=== PATIENT | female | born 1950 | race Hispanic/Latino ===

== ENCOUNTER 2017-05-02 09:00 | Emergency (ER) | payer MEDICARE, OTHER ==
[2017-05-02 09:10] VITALS: BMI 22.6
--- NOTE | 2017-05-02 09:15 | ED PDOC ---
Arrival/HPI - General Historian: Patient <Mya Adkins A - Last Filed: 05/02/17 19:43> <Cruzito Sinha P - Last Filed: 05/03/17 00:39> <Norah Cesar - Last Filed: 05/03/17 12:20> - General Time Seen by Provider: 05/02/17 09:09 - History of Present Illness Narrative History of Present Illness (Text): 05/02/17 09:12 Patient is a 66yo female with no PMHx who was biba for right hip pain s/p trauma this morning. Patient notes that she tripped over a wrise at 0630am and landed on her right hip. Notes that she couldn't move secondary to the pain, until her neighbor came to help her. Notes that pain is only on palpation of the hip. She denies hitting her head on the floor. she is not on any anticoagulant. denies focal weakness, dizziness, nausea, vomiting, headache, any other complaint. (Mya Adkins A) Past Medical History - Provider Review Nursing Documentation Reviewed: Yes <JedMya A - Last Filed: 05/02/17 19:43> Family/Social History - Physician Review Nursing Documentation Reviewed: Yes Family/Social History: Unknown Family HX <JedMya A - Last Filed: 05/02/17 19:43> Allergies/Home Meds <JedMya A - Last Filed: 05/02/17 19:43> <Cruzito Sinha P - Last Filed: 05/03/17 00:39> <Norah Cesar - Last Filed: 05/03/17 12:20> Allergies/Adverse Reactions: Allergies No Known Allergies Allergy (Verified 05/02/17 09:10) Home Medications: Home Meds Medication Instructions Recorded Confirmed No Known Home Med 05/02/17 05/02/17 Review of Systems - Physician Review All systems were reviewed & negative as marked: Yes - Review of Systems Constitutional: Normal Eyes: Normal ENT: Normal Respiratory: Normal Cardiovascular: Normal Gastrointestinal: Normal Genitourinary Female: Normal Musculoskeletal: Arthralgias (right hip pain) Skin: Normal Neurological: Normal Endocrine: Normal Hemo/Lymphatic: Normal Psychiatric: Normal <Mya Adkins A - Last Filed: 05/02/17 19:43> Physical Exam Vital Signs Reviewed: Yes Temperature: Afebrile Blood Pressure: Normal Pulse: Regular Respiratory Rate: Normal Appearance: Positive for: Well-Appearing, Non-Toxic, Comfortable Pain Distress: None Mental Status: Positive for: Alert and Oriented X 3 - Systems Exam Head: Present: Atraumatic, Normocephalic Pupils: Present: PERRL Extroacular Muscles: Present: EOMI Conjunctiva: Present: Normal Mouth: Present: Moist Mucous Membranes Neck: Present: Normal Range of Motion Respiratory/Chest: Present: Clear to Auscultation, Good Air Exchange. No: Respiratory Distress, Accessory Muscle Use Cardiovascular: Present: Regular Rate and Rhythm, Normal S1, S2. No: Murmurs Abdomen: Present: Normal Bowel Sounds. No: Tenderness, Distention, Peritoneal Signs Back: Present: Normal Inspection Upper Extremity: Present: Normal Inspection. No: Cyanosis, Edema Lower Extremity: Present: NORMAL PULSES, Tenderness (Right hip), Neurovascularly Intact, Other (Feet externally rotated). No: Edema, Normal ROM (Unable to ascess secondary to pain), Swelling Neurological: Present: GCS=15, CN II-XII Intact, Speech Normal Skin: Present: Warm, Dry, Normal Color. No: Rashes Psychiatric: Present: Alert, Oriented x 3, Normal Insight, Normal Concentration <Mya Adkins A - Last Filed: 05/02/17 19:43> Vital Signs Temp Pulse Resp BP Pulse Ox 05/02/17 23:36 97.6 F 82 16 122/76 97 05/02/17 18:00 70 16 125/67 96 05/02/17 14:50 77 16 122/77 99 05/02/17 12:50 18 149/76 99 05/02/17 09:24 98.2 F 72 18 146/77 99 Medical Decision Making <JedHappiness A - Last Filed: 05/02/17 19:43> <Cruzito Sinha - Last Filed: 05/03/17 00:39> <Norah Cesar - Last Filed: 05/03/17 12:20> ED Course and Treatment: 05/02/17 12:39 PT in ED for stated history. She declined Percocet and asked for Tylenol. However she later requested for a stronger analgesic and Morphine was ordered. Hip Xra - Left displaced subcapital fracture Case was DW Dr. Ivey and he requested that pt be admitted to the hospitalist and he will take pt to the OR tomorrow. 05/02/17 16:57 PT was seen in ED by Dr. Ivey and he request that patient be transferred to [facility]. States patient require total hip replacement and don't have the instrument in the OR here. Dr. Ivey states he DC with [facility] and pt will be transferred and admitted to his service. Dr. Coleman called from [facility] and states he will back, once patient have a bed and then she can be transferred. (Mya Adkins) 05/03/17 00:39: I was informed by the RN that the patient was refusing to be moved onto the transport stretcher due to pain in the patient's right hip. 2mg of Morphine were ordered which did not help, then 1mg of Dilaudid was ordered and a femoral nerve block was performed. PROCEDURE: DIGITAL BLOCK Performed by the emergency provider Indication : Pain control Location: Right Hip Preparation: The area was prepped and cleansed with ChloraPrep. Procedure: The appropriate site for a femoral nerve block was identified. Nerve block was obtained with local infiltration of 8 mL of Marcaine. Used Ultrasound for guidance. Post-Procedure: The patient tolerated the procedure well, and there were no complications. (Cruzito Sinha) - Lab Interpretations Lab Results: 05/02/17 12:00 05/02/17 12:00 Lab Results 05/02/17 12:30: Blood Type Confirm A POSITIVE 05/02/17 12:00: Blood Type A POSITIVE, Antibody Screen Negative, BBK History Checked No verified bt 05/02/17 12:00: Sodium 140, Potassium 3.8, Chloride 106, Carbon Dioxide 25, Anion Gap 13, BUN 22 H, Creatinine 0.7, Est GFR ( Amer) > 60, Est GFR ( Non-Af Amer) > 60, Random Glucose 123 H, Calcium 9.4, Total Bilirubin 0.5, AST 34, ALT 38, Alkaline Phosphatase 61, Total Protein 7.1, Albumin 4.1, Globulin 3.1, Albumin/Globulin Ratio 1.3 05/02/17 12:00: PT 11.8, INR 1.07, APTT 28.1 05/02/17 12:00: WBC 11.0, RBC 3.77, Hgb 11.4 L, Hct 34.8 L, MCV 92.3, MCH 30.2, MCHC 32.8, RDW 13.1, Plt Count 245, MPV 9.4, Gran % 89.8 H, Lymph % (Auto) 5.5 L , Walker % (Auto) 4.5, Eos % (Auto) 0.1 L, Baso % (Auto) 0.1, Gran # 9.88 H, Lymph # 0.6 L, Walker # 0.5, Eos # 0.0, Baso # 0.01 - RAD Interpretation Radiology Orders: 05/02/17 09:10 Hip Bilateral [HIP MIN 3V W/ PELVIS JOSE CARLOS] [RAD] Stat 05/02/17 11:48 CHEST PORTABLE [RAD] Stat - Medication Orders Current Medication Orders: Discontinued Medications Acetaminophen (Tylenol 325mg Tab) 650 mg PO STAT STA Stop: 05/02/17 09:11 Last Admin: 05/02/17 09:31 Dose: 650 mg [facility] Pain/Vitals Document 05/02/17 09:31 LISET (Rec: 05/02/17 09:32 LISET [id number]) Pain Reassessment Is This A Pain ReAssessment? No Sleep Is patient sleeping during reassessment? No Presence of Pain Presence of Pain Yes Re-Assess: [facility] Pain/Vitals Document 05/02/17 10:31 LISET (Rec: 05/02/17 13:46 LISET [id number]) Pain Reassessment Is This A Pain ReAssessment? No Sleep Is patient sleeping during reassessment? No Presence of Pain Presence of Pain Yes Pain Scale Used Pain Scale Used Numeric Location Intensity 4 Scale Used Numeric Hydromorphone HCl (Dilaudid) 1 mg IVP STAT STA Stop: 05/03/17 00:44 Last Admin: 05/03/17 00:54 Dose: Morphine Sulfate (Morphine) 2 mg IM STAT STA Stop: 05/02/17 10:47 Last Admin: 05/02/17 10:58 Dose: 2 mg MAR Pain Assessment Document 05/02/17 10:58 LISET (Rec: 05/02/17 10:59 LISET [id number]) Pain Reassessment Is this a pain reassessment? No Sleep Is patient sleeping during reassessment? No Presence of Pain Presence of Pain Yes IM Administration Charges Document 05/02/17 10:58 SZA (Rec: 05/02/17 10:59 SZA [id number]) Charges for Administration # of IM Administrations 1 Re-Assess: MAR Pain Assessment Document 05/02/17 11:58 SZA (Rec: 05/02/17 13:45 SZA [id number]) Pain Reassessment Is this a pain reassessment? No Sleep Is patient sleeping during reassessment? No Presence of Pain Presence of Pain Yes Pain Scale Used Pain Scale Used Numeric Description Description Intermittent Intensity of Pain at present 3 Morphine Sulfate (Morphine) 2 mg IVP STAT STA Stop: 05/02/17 14:38 Last Admin: 05/02/17 14:47 Dose: 2 mg MAR Pain Assessment Document 05/02/17 14:47 SZA (Rec: 05/02/17 14:48 SZA [id number]) Pain Reassessment Is this a pain reassessment? No Sleep Is patient sleeping during reassessment? No Presence of Pain Presence of Pain Yes Pain Scale Used Pain Scale Used Numeric Description Description Intermittent Intensity of Pain at present 5 IVP Administration Document 05/02/17 14:47 SZA (Rec: 05/02/17 14:48 SZA [id number]) Charges for Administration # of IVP Administrations 1 Morphine Sulfate (Morphine) 2 mg IVP STAT STA Stop: 05/02/17 16:44 Last Admin: 05/02/17 16:56 Dose: 2 mg MAR Pain Assessment Document 05/02/17 16:56 SC (Rec: 05/02/17 16:56 SC [id number]) Pain Reassessment Is this a pain reassessment? Yes Sleep Is patient sleeping during reassessment? No Presence of Pain Presence of Pain Yes Pain Scale Used Pain Scale Used Numeric Description Intensity of Pain at present 10 IVP Administration Document 05/02/17 16:56 SC (Rec: 05/02/17 16:56 SC [id number]) Charges for Administration # of IVP Administrations 2 Morphine Sulfate (Morphine) 4 mg IVP STAT STA Stop: 05/03/17 00:02 Last Admin: 05/03/17 00:30 Dose: Morphine Sulfate (Morphine) 2 mg IVP STAT STA Stop: 05/03/17 00:44 Last Admin: 05/03/17 00:53 Dose: - PA / CREATIVE RECRUITER / Resident Statement MD/DO has reviewed & agrees with the documentation as recorded. <Norah Cesar - Last Filed: 05/03/17 12:20> Disposition/Present on Arrival - Present on Arrival Any Indicators Present on Arrival: No History of DVT/PE: No History of Uncontrolled Diabetes: No Urinary Catheter: No History of Decub. Ulcer: No History Surgical Site Infection Following: None - Disposition Have Diagnosis and Disposition been Completed?: Yes Disposition Time: 12:40 <Mya Adkins - Last Filed: 05/02/17 19:43> <Cruzito Sinha - Last Filed: 05/03/17 00:39> - Present on Arrival Any Indicators Present on Arrival: No History of DVT/PE: No History of Uncontrolled Diabetes: No Urinary Catheter: No History of Decub. Ulcer: No History Surgical Site Infection Following: None - Disposition Have Diagnosis and Disposition been Completed?: Yes Disposition Time: 19:45 Patient Plan: Transfer To ([facility] [place]) <Norah Cesar - Last Filed: 05/03/17 12:20> - Disposition Diagnosis: Hip fracture Disposition: Transfer [facility] Condition: STABLE Forms: Need Fixed (Albanian)
[2017-05-02] MEDS ORDERED: Morphine 2 mg/ml ISec IM STA (10:46)
[2017-05-02 12:19] LABS: BASO # 0.01 K/mm3 (0.0-2.0); BASO % 0.1 % (0.0-3.0); EOS % 0.1 % (1.5-5.0); GRAN # 9.88 (1.4-6.5); GRAN % 89.8 % (50.0-68.0); HEMATOCRIT 34.8 % (36.0-48.0); LYMPH # 0.6 (1.2-3.4); LYMPH % 5.5 % (22.0-35.0); MEAN CELL VOLUME 92.3 fl (80.0-105.0); MEAN CORPUSCULAR HEMOGLOBIN 30.2 pg (25.0-35.0); MEAN CORPUSCULAR HGB CONC 32.8 g/dl (31.0-37.0); MEAN PLATELET VOLUME 9.4 fl (7.0-11.0); MONO # 0.5 (0.1-0.6); MONO % 4.5 % (1.0-6.0); RED CELL DISTRIBUTION WIDTH 13.1 % (11.5-14.5)
--- NOTE | 2017-05-02 12:22 | RAD ---
PROCEDURE: Bilateral hips HISTORY: right hip pain s/p trauma COMPARISON: TECHNIQUE: Two views of the left hip and a single view of the right hip were obtained. The pelvis to was not completely image FINDINGS: There is a displaced subcapital hip fracture on the right. The left hip is unremarkable IMPRESSION: Displaced subcapital hip fracture on the right
--- NOTE | 2017-05-02 12:24 | RAD ---
HISTORY: admission COMPARISON: No prior. FINDINGS: LUNGS: There is mild peribronchial thickening. No focal consolidation PLEURA: No significant pleural effusion identified, no pneumothorax apparent. CARDIOVASCULAR: Normal. OSSEOUS STRUCTURES: No significant abnormalities. VISUALIZED UPPER ABDOMEN: Normal. OTHER FINDINGS: None. IMPRESSION: Mild peribronchial thickening
[2017-05-02 12:29] LABS: ALB/GLOB RATIO 1.3 (1.1-1.8); ALKALINE PHOSPHATASE 61 U/L (38-126); ALT/SGPT 38 U/L (7-56); AST/SGOT 34 U/L (14-36); BILIRUBIN,TOTAL 0.5 mg/dL (0.2-1.3); BLOOD UREA NITROGEN 22 mg/dL (7-21); CALCIUM 9.4 mg/dL (8.4-10.5); CARBON DIOXIDE 25 mmol/L (21-33); CHLORIDE 106 mmol/L (98-107); GFR AFRICAN-AMERICAN > 60; GLUCOSE,RANDOM 123 mg/dL (70-110); POTASSIUM 3.8 mmol/L (3.6-5.0); SODIUM 140 mmol/L (132-148); TOTAL PROTEIN 7.1 g/dL (5.8-8.3)
[2017-05-02 12:35] LABS: INR 1.07 (0.93-1.08)
[2017-05-02 12:36] LABS: PARTIAL THROMBOPLASTIN TIME 28.1 Seconds (25.1-36.5)
[2017-05-02] MEDS ORDERED: Morphine 2 mg/ml ISec IVP STA ×2 (14:37→16:43)
[2017-05-02 14:55] VITALS: RESP 16
--- NOTE | 2017-05-02 18:26 | CARD ---
APPROVED REPORT EKG Measurement Heart [id number] <Conclusion> Normal sinus rhythm Possible Left atrial enlargement Low voltage QRS Borderline ECG
[2017-05-02 23:36] VITALS: BP 122/76; PULSE 82; TEMP 97.6; O2SAT 97
[2017-05-02] MEDS ORDERED: Morphine 2 mg/ml ISec ONE (23:39)
[2017-05-03] MEDS ORDERED: Morphine 4 mg/ml ISec IVP STA ×2 (00:01→00:43)
[2017-05-03] MEDS ORDERED: Bupivacaine 0.5% Inj(30mL) ONE (00:22)
[2017-05-03] MEDS ORDERED: HYDROmorphone 1 mg/ml ISec ONE (00:23)
[2017-05-03] MEDS ORDERED: HYDROmorphone 1 mg/ml ISec IVP STA (00:43)
== END 2017-05-03 00:54 | disposition short-term general hospital (02) ==
LOC: ED 09:00 → ERH 12:56 → UNDOADMIN 12:56 → ERH 13:19 → ED 05-03 00:54
DX: S72.011A Unspecified intracapsular fracture of right femur, initial encounter for closed fracture (principal); W01.0XXA Fall on same level from slipping, tripping and stumbling without subsequent striking against object, initial encounter; Y92.89 Other specified places as the place of occurrence of the external cause
CPT/HCPCS: 71010; 73522; 80053; 85025; 85610; 85730; 86850; 86900; 93005; 96372; 96374; 96376; 99284; J1170; J2270

== ENCOUNTER 2018-06-05 16:37 | Emergency (ER) | payer MEDICARE ==
[2018-06-05 16:49] VITALS: BMI 20.9
[2018-06-05 16:57] VITALS: TEMP 98
[2018-06-05] MEDS ORDERED: Iohexol 350 MG/100 ML VIAL ONE (17:19)
[2018-06-05 17:42] LABS: BASO # 0.02 K/mm3 (0.0-2.0); BASO % 0.7 % (0.0-3.0); EOS # 0.1 (0.0-0.7); EOS % 2.5 % (1.5-5.0); GRAN # 1.42 (1.4-6.5); HEMOGLOBIN 12.3 g/dL (12.0-16.0); LYMPH # 0.9 (1.2-3.4); LYMPH % 29.9 % (22.0-35.0); MEAN CELL VOLUME 91.6 fl (80.0-105.0); MEAN CORPUSCULAR HEMOGLOBIN 29.5 pg (25.0-35.0); MEAN CORPUSCULAR HGB CONC 32.2 g/dl (31.0-37.0); MEAN PLATELET VOLUME 9.4 fl (7.0-11.0); MONO # 0.5 (0.1-0.6); MONO % 16.9 % (1.0-6.0); RBC 4.17 10^6/uL (3.5-6.1); WHITE BLOOD COUNT 2.8 10^3/uL (4.5-11.0)
--- NOTE | 2018-06-05 17:45 | ED PDOC ---
Arrival/HPI - General Chief Complaint: Weakness/Neurological Deficit Time Seen by Provider: 06/05/18 16:52 Historian: Patient - History of Present Illness Narrative History of Present Illness (Text): 06/05/18 17:47 67 yo F c/o difficulty speaking, states that when she talks she gets tired of speaking, explaining that she can not talk for a long time. Sympotms have been occuring x 1.5 months. She has seen her pmd regarding her symptoms and referred her to ENT. She saw Dr. Laguerre, ENT, who did a scope and was told everything was normal. Admits to feeling fatigue at times. Admits that she was a former smoker. Denies any fever, URI, headache, sore throat, dyspnea, dysphagia, neck pain. PMD Perveen Past Medical History - Infectious Disease Hx of Infectious Diseases: None - Cardiac Hx Cardiac Disorders: No - Pulmonary Hx Respiratory Disorders: No - Neurological Hx Neurological Disorder: No - HEENT Hx HEENT Disorder: No - Renal Hx Renal Disorder: No - Endocrine/Metabolic Hx Endocrine Disorders: No - Hematological/Oncological Hx Blood Disorders: No - Integumentary Hx Dermatological Disorder: No - Musculoskeletal/Rheumatological Hx Musculoskeletal Disorders: No - Gastrointestinal Hx Gastrointestinal Disorders: No - Genitourinary/Gynecological Hx Genitourinary Disorders: No - Psychiatric Hx Psychophysiologic Disorder: No Hx Substance Use: No - Surgical History Other/Comment: R hip surgery. R elbow surgery. R shoulder surgery - Anesthesia Hx Anesthesia: No Family/Social History Family/Social History: No Known Family HX Smoking Status: Unknown If Ever Smoked Hx Alcohol Use: No Hx Substance Use: No Allergies/Home Meds Allergies/Adverse Reactions: Allergies No Known Allergies Allergy (Verified 06/05/18 16:57) Home Medications: Home Meds Medication Instructions Recorded Confirmed No Known Home Med 05/02/17 06/05/18 Review of Systems - Review of Systems Constitutional: absent: Fatigue, Fevers ENT: Voice Changes, Other (+difficulty speaking). absent: Rhinorrhea, Sinus Congestion Respiratory: absent: SOB, Cough Cardiovascular: absent: Chest Pain, Palpitations Gastrointestinal: absent: Abdominal Pain, Nausea, Vomiting Skin: absent: Pruritis Neurological: absent: Headache, Dizziness Physical Exam Vital Signs Temp Pulse Resp BP Pulse Ox 06/05/18 16:54 98.0 F 93 H 18 162/91 H 100 Temperature: Afebrile Blood Pressure: Hypertensive Pulse: Regular Respiratory Rate: Normal Appearance: Positive for: Well-Appearing, Non-Toxic, Comfortable Pain Distress: None Mental Status: Positive for: Alert and Oriented X 3 - Systems Exam Head: Present: Atraumatic, Normocephalic Pupils: Present: PERRL Extroacular Muscles: Present: EOMI Conjunctiva: Present: Normal Mouth: Present: Moist Mucous Membranes Pharnyx: Present: Normal. No: ERYTHEMA, EXUDATE Neck: Present: Normal Range of Motion, Trachea Midline. No: Lymphadenopathy Respiratory/Chest: Present: Clear to Auscultation, Good Air Exchange. No: Respiratory Distress, Accessory Muscle Use Cardiovascular: Present: Regular Rate and Rhythm, Normal S1, S2. No: Murmurs Abdomen: No: Tenderness, Distention, Peritoneal Signs Back: Present: Normal Inspection Upper Extremity: Present: Normal Inspection. No: Cyanosis, Edema Lower Extremity: Present: Normal Inspection. No: Edema Neurological: Present: GCS=15, CN II-XII Intact, Speech Normal (patient speaking in full sentences without any difficulty), Motor Func Grossly Intact, Normal Sensory Function, Gait Normal Skin: Present: Warm, Dry, Normal Color. No: Rashes Psychiatric: Present: Alert, Oriented x 3, Normal Insight, Normal Concentration Medical Decision Making ED Course and Treatment: 06/05/18 17:52 Plan : - Labs - CT neck w/ IV contrast 06/05/18 19:26 Labs reviewed : wbc 2. CT neck w/ IV contrast : IMPRESSION: 1. No pertinent laryngeal findings including the vocal cords bilaterally. No definite neck mass in the bilateral pulmonary apices reflect biapical fibrosis without gross mass particularly at the right apex. No findings at the regions of the bilateral recurrent laryngeal nerves. Consider possible head CT if brain infarction is clinically suspected given history of dysarthria. 2. Irregular appearing esophagus incidentally noted suspicious for esophagitis or possible neoplasm. Follow-up GI consultation advised. 3. Likely chronic sinusitis left maxillary sinus which is completely opacified. Results d/w the patient. Advised to follow up CT results with her pmd and with GI referral provided without fail. Return to the emergency room at any time for any new or worsening symptoms. Patient states she fully agrees with and understands discharge instructions. States that she agrees with the plan and disposition. Verbalized and repeated discharge instructions and plan. I have given the patient opportunity to ask any additional questions. - RAD Interpretation Radiology Orders: 06/05/18 17:01 NECK SOFT TISSUE W/CONTRAST [CT] Stat - PA / INORGANIC CHEMISTRY PROFESSOR / Resident Statement /DO has reviewed & agrees with the documentation as recorded. Disposition/Present on Arrival - Present on Arrival Any Indicators Present on Arrival: No History of DVT/PE: No History of Uncontrolled Diabetes: No Urinary Catheter: No History of Decub. Ulcer: No History Surgical Site Infection Following: None - Disposition Have Diagnosis and Disposition been Completed?: Yes Diagnosis: Difficulty speaking Disposition: HOME/ ROUTINE Disposition Time: 19:15 Patient Plan: Discharge Patient Problems: Current Active Problems Problem Status Onset Difficulty speaking Acute Condition: STABLE Additional Instructions: Thank you for letting us take care of you today. You were treated for difficulty speaking. The emergency medical care you received today was directed at your acute symptoms. Return to the Emergency Department if your symptoms worsen, do not improve, or if you have any other problems. Please contact your doctor in 2 days for re-evaluation and follow up / or call one of the physicians/clinics you have been referred to that are listed on the Patient Visit Information form that is included in your discharge packet. Bring any paperwork you were given at discharge with you along with any medications you are taking to your follow up visit. Our treatment cannot replace ongoing medical care by a primary care provider (PCP) outside of the emergency department. Thank you for allowing the [facility] team to be part of your care today. Follow up CT results with your pmd and with GI referral without fail. CT neck w/ IV contrast : 1. No pertinent laryngeal findings including the vocal cords bilaterally. No definite neck mass in the bilateral pulmonary apices reflect biapical fibrosis without gross mass particularly at the right apex. No findings at the regions of the bilateral recurrent laryngeal nerves. Consider possible head CT if brain infarction is clinically suspected given history of dysarthria. 2. Irregular appearing esophagus incidentally noted suspicious for esophagitis or possible neoplasm. Follow-up GI consultation advised. 3. Likely chronic sinusitis left maxillary sinus which is completely opacified. Referrals: Todd Gates MD [Primary Care Provider] - Follow up with primary Patrick Brown MD [Staff Provider] - Follow up with primary Forms: [employer] (Serbian)
[2018-06-05 17:53] LABS: ALB/GLOB RATIO 1.3 (1.1-1.8); ALT/SGPT 27 U/L (7-56); AST/SGOT 36 U/L (14-36); BLOOD UREA NITROGEN 20 mg/dL (7-21); CALCIUM 9.2 mg/dL (8.4-10.5); GFR NON-AFRICAN AMERICAN > 60
--- NOTE | 2018-06-05 19:01 | CT ---
Date of service: 06/05/2018 PROCEDURE: CT NECK WITH CONTRAST HISTORY: difficulty speaking, h/o smoking COMPARISON: None available. TECHNIQUE: CT of the neck with intravenous contrast. Coronal and sagittal reformats generated. Intravenous contrast dose: Omnipaque 350, 100 cc. Radiation dose: Total exam DLP = 374.64 mGy-cm. This CT exam was performed using one or more of the following dose reduction techniques: Automated exposure control, adjustment of the mA and/or kV according to patient size, and/or use of iterative reconstruction technique. FINDINGS: Incidental views through the visualized inferior intracranial contents and orbits is unremarkable. There is complete sinus opacification of the left maxillary sinus reflecting chronic sinusitis given mucoperiosteal thickening. Underlying acute component not excluded. Dental hardware obscures oral cavity evaluation. No discrete mass is seen in the pharynx, larynx or parapharyngeal soft tissues. Oral cavity appears unremarkable there is no suspicious lymphadenopathy in the supra or infrahyoid neck. Visualized trachea is widely patent. Vocal cords are unremarkable and symmetric appearing. The thoracic inlet appears unremarkable. Note, however, the esophagus appears irregularly thickened suspicious for potential esophagitis or even neoplasm. GI consultation recommended. Biapical pulmonary fibrosis identified without definitive mass apparent at this time. No suspicious lytic or blastic bony changes. Straightened cervical curvature with multilevel spondylosis and degenerative disease seen worst at C4-5 where there is essentially no residual intervertebral disc space remaining. OTHER FINDINGS: None. IMPRESSION: 1. No pertinent laryngeal findings including the vocal cords bilaterally. No definite neck mass in the bilateral pulmonary apices reflect biapical fibrosis without gross mass particularly at the right apex. No findings at the regions of the bilateral recurrent laryngeal nerves. Consider possible head CT if brain infarction is clinically suspected given history of dysarthria. 2. Irregular appearing esophagus incidentally noted suspicious for esophagitis or possible neoplasm. Follow-up GI consultation advised. 3. Likely chronic sinusitis left maxillary sinus which is completely opacified.
[2018-06-05 20:03] VITALS: BP 154/88; PULSE 68; RESP 20; O2SAT 99
== END 2018-06-05 20:03 | disposition home or self-care (01) ==
LOC: ED 16:37
DX: R47.9 Unspecified speech disturbances (principal)
CPT/HCPCS: 70491; 80053; 85025; 99285; Q9967

== ENCOUNTER 2018-07-15 08:18 | Emergency (ER) | payer MEDICARE ==
[2018-07-15 08:28] VITALS: BMI 20.8
[2018-07-15 08:39] VITALS: RESP 16; O2SAT 100
--- NOTE | 2018-07-15 09:02 | ED PDOC ---
Arrival/HPI - General Chief Complaint: Weakness/Neurological Deficit Time Seen by Provider: 07/15/18 08:29 Historian: Patient - History of Present Illness Narrative History of Present Illness (Text): 07/15/18 08:29 67 year old F with hx of esophageal ulcer and hernia presents to the Emergency department with generalized weakness, vocal weakness since over one month. Patient notes weakness and trouble balancing when ambulating. Patient informs slurring words since symptom onset. Patient informs of visiting ENT who confirmed no polyps or throat problems. Patient states she came to [facility] and saw Dr. Laguerre for endoscopy. Patient states endoscopy found esophageal hernia and ulcer. Patient states she is concerned about possible stroke. Patient denies any changes in symptoms since onset. Patient denies fevers, chills, headache, chest pain, dyspnea on exertion, cough, abdominal pain, nausea, vomiting, diarrhea, back pain, neck pain, or any other complaint. Time/Duration: > month Symptom Onset: Gradual Symptom Course: Unchanged Activities at Onset: Light Context: Home Past Medical History - Provider Review Nursing Documentation Reviewed: Yes - Infectious Disease Hx of Infectious Diseases: None - Cardiac Hx Cardiac Disorders: No - Pulmonary Hx Respiratory Disorders: No - Neurological Hx Neurological Disorder: No - HEENT Hx HEENT Disorder: No - Renal Hx Renal Disorder: No - Endocrine/Metabolic Hx Endocrine Disorders: No - Hematological/Oncological Hx Blood Disorders: No - Integumentary Hx Dermatological Disorder: No - Musculoskeletal/Rheumatological Hx Musculoskeletal Disorders: Yes Hx Falls: Yes - Gastrointestinal Hx Gastrointestinal Disorders: Yes - Genitourinary/Gynecological Hx Genitourinary Disorders: No - Psychiatric Hx Psychophysiologic Disorder: No Hx Substance Use: No - Surgical History Other/Comment: R hip surgery. R elbow surgery. R shoulder surgery - Anesthesia Hx Anesthesia: No Family/Social History - Physician Review Nursing Documentation Reviewed: Yes Family/Social History: No Known Family HX Smoking Status: Unknown If Ever Smoked Hx Alcohol Use: No Hx Substance Use: No Allergies/Home Meds Allergies/Adverse Reactions: Allergies No Known Allergies Allergy (Verified 06/05/18 16:57) Home Medications: Home Meds Medication Instructions Recorded Confirmed No Known Home Med 05/02/17 06/05/18 Review of Systems - Review of Systems Constitutional: absent: Fevers, Night Sweats ENT: Voice Changes Respiratory: SOB. absent: Cough Cardiovascular: absent: Chest Pain, DEL CID Gastrointestinal: absent: Abdominal Pain, Diarrhea, Nausea, Vomiting Musculoskeletal: absent: Back Pain, Neck Pain Neurological: Dizziness, Other (generalized weakness). absent: Headache Physical Exam - Physical Exam Narrative Physical Exam (Text): 07/15/18 08:29 Gen: VS reviewed, alert, well developed, well nourished, nontoxic, mild distress. ENT: normal pharynx. Eye: Mild edema under eyelids bilaterally, EOMI, PERRL. Neck: no JVD, supple, no adenopathy. CV: regular rate, regular rhythm, no rubs, no murmur, no gallops, S1, S2, pulses equal and strong. Pulm: no distress, clear to auscultation, no wheeze, no rhonchi, breath sounds equal, no rales. Abd: soft, nontender, no guarding, no rebound, no rigidity, normal bowel sounds. Ext: no edema. Skin: good color, no rash, no cyanosis. Psych: responds appropriately to questions, normal affect. Neuro: oriented x 3, CN2-12 intact grossly, motor intact, sensation intact. Vital Signs Reviewed: Yes Vital Signs Temp Pulse Resp BP Pulse Ox 07/15/18 08:33 97.3 F L 75 16 131/76 100 Temperature: Afebrile Blood Pressure: Normal Pulse: Regular Respiratory Rate: Normal Appearance: Positive for: Well-Appearing, Non-Toxic, Comfortable Pain Distress: None Mental Status: Positive for: Alert and Oriented X 3 Medical Decision Making ED Course and Treatment: 07/15/18 10:47 patient was seen for chronic fatigue without any focal subjective finding. physical exam unremarkable and workup unremarkable. there was no headache, c hest pain, dyspnea, abdominal pain, dysuria. Ct of the head was performed as the patient reports that her speech appears slowed or slurred. all her symptoms are chronic in nature and can be further worked up on a outpatient basis. patient discharged in stable condition to follow up with pcp. - RAD Interpretation Narrative RAD Interpretations (Text): 07/15/18 09:50 CT head w/o contrast shows: IMPRESSION: No acute intracranial finding Forging Press Operator: Radiologist - EKG Interpretation EKG Interpretation (Text): 07/15/18 09:52 0903: nsr at 70 bpm, nml qrs, nml axis, no acute sttw abn Interpreted by ED Physician: Yes - Scribe Statement The provider has reviewed the documentation as recorded by the Scribe Sadiq Woods All medical record entries made by the Scribe were at my direction and personally dictated by me. I have reviewed the chart and agree that the record accurately reflects my personal performance of the history, physical exam, medical decision making, and the department course for this patient. I have also personally directed, reviewed, and agree with the discharge instructions and disposition. Disposition/Present on Arrival - Present on Arrival Any Indicators Present on Arrival: No History of DVT/PE: No History of Uncontrolled Diabetes: No Urinary Catheter: No History of Decub. Ulcer: No History Surgical Site Infection Following: None - Disposition Have Diagnosis and Disposition been Completed?: Yes Diagnosis: Fatigue Disposition: HOME/ ROUTINE Disposition Time: 10:53 Patient Plan: Discharge Condition: STABLE Discharge Instructions (ExitCare): Fatigue (DC) Additional Instructions: follow up with your primary care doctor. Forms: [employer] (Sami)
[2018-07-15 09:10] LABS: BASO # 0.03 K/mm3 (0.0-2.0); BASO % 0.6 % (0.0-3.0); EOS # 0.1 (0.0-0.7); EOS % 2.1 % (1.5-5.0); HEMOGLOBIN 12.3 g/dL (12.0-16.0); LYMPH # 1.3 (1.2-3.4); LYMPH % 24.5 % (22.0-35.0); MEAN CELL VOLUME 92.2 fl (80.0-105.0); MEAN CORPUSCULAR HGB CONC 32.5 g/dl (31.0-37.0); MEAN PLATELET VOLUME 9.5 fl (7.0-11.0); MONO # 0.4 (0.1-0.6); MONO % 7.9 % (1.0-6.0); RBC 4.1 10^6/uL (3.5-6.1); WHITE BLOOD COUNT 5.4 10^3/uL (4.5-11.0)
[2018-07-15 09:22] LABS: ALB/GLOB RATIO 1.3 (1.1-1.8); ALBUMIN 4.4 g/dL (3.0-4.8); ALT/SGPT 17 U/L (7-56); AST/SGOT 41 U/L (14-36); BLOOD UREA NITROGEN 26 mg/dL (7-21); GFR NON-AFRICAN AMERICAN > 60
--- NOTE | 2018-07-15 09:53 | CT ---
Date of service: 07/15/2018 PROCEDURE: CT HEAD WITHOUT CONTRAST. HISTORY: weakness, ?slurred speech COMPARISON: None available. TECHNIQUE: Axial computed tomography images were obtained through the head/brain without intravenous contrast. Radiation dose: Total exam DLP = 941.75 mGy-cm. This CT exam was performed using one or more of the following dose reduction techniques: Automated exposure control, adjustment of the mA and/or kV according to patient size, and/or use of iterative reconstruction technique. FINDINGS: HEMORRHAGE: No intracranial hemorrhage. BRAIN: No mass effect or edema. No atrophy or chronic microvascular ischemic changes. VENTRICLES: Unremarkable. No hydrocephalus. CALVARIUM: Unremarkable. PARANASAL SINUSES: Complete opacification of the left maxillary sinus MASTOID AIR CELLS: Unremarkable as visualized. No inflammatory changes. OTHER FINDINGS: None. IMPRESSION: No acute intracranial finding
[2018-07-15 11:02] VITALS: BP 127/70; PULSE 78; TEMP 98.1
--- NOTE | 2018-07-15 11:35 | CARD ---
APPROVED REPORT Date of service: 07/15/2018 EKG Measurement Heart [id number] <Conclusion> Normal sinus rhythm Normal ECG
== END 2018-07-15 11:05 | disposition home or self-care (01) ==
LOC: ED 08:18
DX: R53.83 Other fatigue (principal)

== ENCOUNTER 2018-07-29 16:36 | Inpatient (IN) | payer MEDICARE, OTHER | END 2018-08-01 14:07 | disposition skilled nursing facility (03) | LOC: ERH 23:51 → 3RNO 07-30 01:18 → ED 16:36 ==

== ENCOUNTER 2018-08-01 14:10 | Inpatient (IN) | payer OTHER ==
[2018-08-01] MEDS ORDERED: TraMADol/Apap 37.5/325 mg Tab PO PRN (14:20)
[2018-08-01] MEDS: Mupirocin 2% Ointment 15 GM TUBE TOP SCH (17:47)
[2018-08-01] MEDS ORDERED: Pneumococcal 23-Valent Vaccine IM ONE (20:38)
[2018-08-01] MEDS ORDERED: Influenza Vaccine 60 mcg/0.5 mL SYR (4YR UP) IM ONE (20:38)
[2018-08-01 20:39] VITALS: BMI 20.6
[2018-08-02] MEDS: Mupirocin 2% Ointment 15 GM TUBE TOP SCH ×2 (09:31→17:01)
[2018-08-02] MEDS: Cholecalciferol 1,000 INTLU TAB PO SCH (09:31)
--- NOTE | 2018-08-02 22:27 | HP ---
DATE OF EXAM: 08/02/2018 HISTORY OF PRESENT ILLNESS: This is a 67-year-old female who had come in to the hospital because of weakness. She had difficulty ambulating. The patient has been having multiple falls. I did review the notes of the hospital. Patient was seen by Neurology. She had evaluation of CAT scan of the chest. No specific etiology was found. It was thought that she may have a viral syndrome. She is coming to the transitional care unit for rehab. She denies any chest pain. No shortness of breath. No nausea. No vomiting. No headache. No abdominal pain. No back pain. She said she is feeling weak. She has difficulty walking. Her appetite has been poor. ALLERGIES: NO KNOWN DRUG ALLERGIES. PAST MEDICAL HISTORY: Gastritis. SOCIAL HISTORY: She does not smoke or drink. FAMILY HISTORY: Noncontributory. CURRENT MEDICATIONS: Reviewed. She is on tramadol and Tylenol. She is on vitamin D and mupirocin ointment. PHYSICAL EXAMINATION: VITAL SIGNS: Temperature 98.3, pulse of 82, blood pressure 113/70, respirations 18. GENERAL: The patient is lying in bed, comfortable, and in no acute distress. HEENT: Atraumatic and normocephalic. Anicteric sclerae. Moist mucosa. [place] conjunctivae. No oral lesions. NECK: No JVD, anterior and posterior adenopathy, thyromegaly, or bruits. CARDIOVASCULAR: S1 and S2 regular. No murmurs, rubs or gallops. LUNGS: Clear to auscultation bilaterally. No wheezes, rales, or rhonchi. ABDOMEN: Bowel sounds are positive. Soft, nontender and nondistended. No hepatosplenomegaly. No rebound and no guarding EXTREMITIES: No cyanosis, clubbing, or edema. NEUROLOGIC: No facial asymmetry. Tongue is midline. No uvula deviation. Power is 5/5 upper extremities and lower extremities. Sensation intact in upper extremities and lower extremities. PSYCHIATRIC: She is awake, alert and oriented x3. No anxiety or depression. She has normal affect. GENITOURINARY: No CVA tenderness. VASCULAR: 2+ pulses in the carotid pulses and pedal pulses. SKIN: No erythema or nodules SPINE: Shows normal curvature. LABORATORY DATA: Her last labs was reviewed by me. Her white count was 6.5, this is from 07/29/2018 labs. Her hemoglobin was 12.5. She had a chemistry that showed sodium of 139, creatinine 0.8. She had B12 that was greater than 1000. Patient had a chest x-ray in the hospital that showed no acute changes. She had x-rays of her bilateral knees that showed degenerative changes. ASSESSMENT: 1. Deconditioning. 2. Bilateral knee osteoarthritis. 3. Fall. PLAN: Patient is currently admitted to transitional care unit. She is going to be continued on Tylenol and tramadol. She is on vitamin D. She is on heart-healthy diet. She is going to be encouraged to eat more. She had a history of peptic ulcer disease, . Jersey Acosta MD
--- NOTE | 2018-08-03 08:45 | CON ---
DATE: 08/02/2018 ORTHOPEDIC CONSULTATION LOCATION: Room 316, bed 1. 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 So, I am going to ask for physical therapy to be with strengthening the muscles of the lower extremities especially the right side and the upper extremities especially the right side and she should be able to walk with the walker or cane and has to get up out of bed and participate in therapy. FINAL DIAGNOSES: Acute fracture of the right hand, not needing surgical intervention and arthritis of the right knee that was helped with Depo-Medrol injections given a couple of days ago and generalized muscle weakness. Mynor Ivey DO
[2018-08-03] MEDS: Cholecalciferol 1,000 INTLU TAB PO SCH (09:52)
[2018-08-03] MEDS: Mupirocin 2% Ointment 15 GM TUBE TOP SCH ×2 (09:53→17:13)
[2018-08-04] MEDS: Mupirocin 2% Ointment 15 GM TUBE TOP SCH ×2 (09:54→17:33)
[2018-08-04] MEDS: Cholecalciferol 1,000 INTLU TAB PO SCH (09:55)
--- NOTE | 2018-08-04 22:32 | PN ---
DATE: 08/04/2018 SUBJECTIVE: The patient is 67 years old, seen and examined, doing very well in therapy. She still has nasal , low tone speech, but seem to be improving, seemed to be in good spirits. PHYSICAL EXAMINATION VITAL SIGNS: She is afebrile, pulse 91, respirations 20, blood pressure 128/75. LUNGS: Bilateral good airflow. No rhonchi or crackle. HEART: S1, S2 audible. ABDOMEN: Soft, nontender. No rebound. No guarding. NEUROLOGIC: The patient is awake and alert, able to communicate. LABORATORY DATA: There is no new lab available today. ASSESSMENT: 1. Generalized weakness. 2. History of Jennifer-Hammond virus with viral syndrome. 3. Multiple falls, deconditioning and difficulty walking. PLAN: We will continue the patient on speech therapy. Continue physical therapy. We will follow up this patient in a.m. Todd Gates MD
[2018-08-05] MEDS: Cholecalciferol 1,000 INTLU TAB PO SCH (09:39)
[2018-08-05] MEDS: Mupirocin 2% Ointment 15 GM TUBE TOP SCH ×2 (09:39→17:10)
--- NOTE | 2018-08-05 10:47 | PN ---
DATE: 08/03/2018 SUBJECTIVE: The patient is 67-year-old, seen and examined. Saw in Gym and participating in therapy. Getting her exercises. Complaint of dizzy at time. PHYSICAL EXAMINATION: VITAL SIGNS: She is afebrile. Pulse 76, respiration 18 and blood pressure 111/64. LUNGS: Bilateral fair airflow. No rhonchi or crackle. HEART: S1 and S2, audible. ABDOMEN: Soft and nontender. No rebound. No guarding. NEUROLOGIC: The patient is awake, alert and able to communicate. ASSESSMENT: 1. Status post generalized weakness, difficulty walking, status post multiple fall at home, sustained facial laceration. 2. History of Jennifer-Hammond virus exacerbation. 3. Slight dysphagia, she has low tone voice. Currently she is getting aggressive physical therapy and speech therapy. Continue current management. Todd Gates MD
--- NOTE | 2018-08-05 15:58 | PN ---
DATE: 08/05/2018 SUBJECTIVE: The patient is 67-year-old, seen and examined, doing well. Participating in therapy, getting gait training. No nausea. No vomiting. No diarrhea. PHYSICAL EXAMINATION VITAL SIGNS: She is afebrile, pulse 91, respirations 20 and blood pressure 128/75. LUNGS: Bilateral fair airflow. No rhonchi or crackle. HEART: S1 and S2, audible. ABDOMEN: Soft and nontender. No rebound. No guarding. NEUROLOGIC: The patient is awake and alert. Communicative and ambulatory. LABORATORY DATA: She still has nasal . She still has low voice tone. ASSESSMENT: 1. Viral syndrome. 2. Generalized weakness. 3. Status post multiple falls. 4. History of Jennifer-Hammond virus infection. 5. Right knee osteoarthritis. PLAN: The patient is doing quite well, participating in therapy. She is getting speech therapy. Continue aggressive therapy and gait training. Todd Gates MD
[2018-08-06] MEDS: Cholecalciferol 1,000 INTLU TAB PO SCH (09:20)
[2018-08-06] MEDS: Mupirocin 2% Ointment 15 GM TUBE TOP SCH ×2 (10:11→17:45)
--- NOTE | 2018-08-06 20:24 | PN ---
DATE: 08/06/2018 SUBJECTIVE: Patient is 67 years old, seen and examined, doing well, seen in therapy. She states she is feeling better, getting stronger. Gait is better. PHYSICAL EXAMINATION VITAL SIGNS: She is afebrile. Pulse 80, respirations 18, blood pressure 119/68. LUNGS: Bilateral good airflow. No rhonchi or crackles. HEART: S1 and S2 audible. ABDOMEN: Soft and nontender. No rebound. No guarding. NEUROLOGIC: Patient is awake and alert, able to communicate. Speech is better. ASSESSMENT: 1. Status post multiple falls. 2. Unstable gait. 3. Dysphonia. PLAN: Patient is getting physical therapy. She is getting speech therapy. We will follow up this patient in the a.m. Todd Gates MD
[2018-08-07] MEDS: Mupirocin 2% Ointment 15 GM TUBE TOP SCH ×2 (09:18→17:16)
[2018-08-07] MEDS: Cholecalciferol 1,000 INTLU TAB PO SCH (09:19)
--- NOTE | 2018-08-07 21:26 | PN ---
DATE: 08/07/2018 SUBJECTIVE: Patient is 67-year-old, seen and examined, doing well in therapy, getting speech therapy and physical therapy. PHYSICAL EXAMINATION: VITAL SIGNS: She is afebrile. Pulse 80, respirations 18, and blood pressure 118/68. LUNGS: Bilateral fair airflow. No rhonchi or crackles. HEART: S1 and S2 audible. ABDOMEN: Soft and nontender. No rebound. No guarding. NEUROLOGIC: She is awake, alert, and able to communicate. Participating in therapy, getting stronger. Gait is stable. ASSESSMENT: 1. Status post multiple fall. 2. Dysphonia. 3. Dysphagia. 4. Generalized weakness. PLAN: I will continue the patient on current management. Encourage physical therapy and gait training. We will follow up in a.m. Todd Gates MD
[2018-08-08] MEDS: Mupirocin 2% Ointment 15 GM TUBE TOP SCH (09:30)
[2018-08-08] MEDS: Cholecalciferol 1,000 INTLU TAB PO SCH (09:30)
--- NOTE | 2018-08-08 13:49 | PN ---
DATE: 08/08/2018 SUBJECTIVE: The patient is 67 years old, seen and examined, lying in bed, seems to be comfortable. Still has very pronounced nasal twang. Speech is low tone and also seems to be improving in her physical therapy. PHYSICAL EXAMINATION GENERAL: She is awake and alert, able to communicate. VITAL SIGNS: She is afebrile. Pulse 80, respirations 18, and blood pressure 119/65. LUNGS: Bilateral fair airflow. No rhonchi or crackles. HEART: S1 and S2, audible. ABDOMEN: Soft and nontender. No rebound. No guarding. NEUROLOGIC: She is awake and alert, able to communicate. ASSESSMENT 1. Deconditioning and difficulty walking. 2. Status post multiple falls. 3. History of viral syndrome, being positive for Jennifer-Hammond virus. 4. Dysphonia and dysphasia, etiology unknown. PLAN: We will continue physical therapy. I will request ENT for indirect laryngoscopy and evaluate her nasal twang of the speech. We will follow up this patient. Todd Gates MD
[2018-08-09] MEDS: Cholecalciferol 1,000 INTLU TAB PO SCH (09:02)
[2018-08-09 09:04] VITALS: RESP 20
[2018-08-09 17:47] VITALS: BP 116/59; PULSE 95; TEMP 97.8; O2SAT 96
--- NOTE | 2018-08-09 18:01 | CON ---
DATE OF CONSULTATION: 08/09/2018 LOCATION: Seen in Room 316 with Speech Therapy and Respiratory Therapy. REASON FOR CONSULTATION: This is a patient of Dr. Gates recommending and asking for consultation secondary to dysphagia and dysphonia. HISTORY OF PRESENT ILLNESS: This 67-year-old female seen comfortably having a conversation with Speech Therapy with noted voice changes. States at different points she loses her voice. She has a long-time history of dysphagia with a noted ulcer and gastric reflux and questionable hiatal hernia with no upper oral or oropharyngeal dysphagia noted. On conversation, this 67-year-old female hoping to get home and she would like to get back to work. It was discussed that she should follow in the office of Dr. Scott Dozier. PHYSICAL EXAMINATION: The neck was noted to be soft, supple without adenopathy. Tongue was midline with positive gag. A direct laryngoscopy was done with Speech Therapy as well as Respiratory Therapy. The left nasal vestibule was utilized. As the nasopharynx was identified, the posterior oropharynx was noted to be normal with a normal size tongue and a functioning epiglottis, hypopharynx was noted to be normal without lesion or growth, and noted positive gag. As we extended down to the supraglottic area and glottic areas, good vocal cord mobility with no vocal cord lesions, good vocal cord closure and glottic chink, there were no signs of gastric reflux, no signs of any mass lesions. A small amount of posterior AE erythema, mild in appearance, questionable reflux. The patient tolerated procedures without complication. ASSESSMENT/PLAN: The discussion of findings were done with Speech Therapy, Respiratory Therapy and with the patient. The patient is concerned that her speech sometimes is rather weak and loss of projection. It was discussed with her that we will have to have a consultation with Pulmonary and a possible pulmonary function test to see if the component of her weakness is more respiratory. The patient will continue with speech therapy to improve function. The patient will be discharged over the next [address] Gates's note and will follow up in the office of Dr. Scott Dozier, for continued voice care. GI consultation was discussed secondary to ulcer and the patient has been under the treatment of GI at present. Scott Dozier DO MTDBrody
--- NOTE | 2018-08-10 08:12 | PN ---
DATE: 08/09/2018 SUBJECTIVE: The patient is 67-year-old, seen and examined. Lying in bed. Seems to be comfortable. Feels a lot better, because he took this morning. PHYSICAL EXAMINATION: VITAL SIGNS: She is afebrile. Pulse 77, respiration 20, blood pressure 107/65. LUNGS: Bilateral fair airflow. No rhonchi or crackle. HEART: S1 and S2, audible. ABDOMEN: Soft and nontender. No rebound. No guarding. NEUROLOGIC: She is awake, alert and able to communicate. She has unbalance gait, but getting a lot of physical therapy with gait training. ASSESSMENT AND PLAN: Status post Todd Gates MD
[2018-08-10] MEDS: Cholecalciferol 1,000 INTLU TAB PO SCH (09:37)
--- NOTE | 2018-08-11 02:58 | DS ---
HOSPITAL COURSE: Patient is 67 years old, who has been having dizziness, unstable gait, had fall multiple times. Last time she came to office, she fell prior to coming to the office. She sustained a facial abrasion. She was sent to neurologist who recommended her to go to emergency room, has neurological workup done including CT scan of the head. CT scan of the abdomen and pelvis was also done and that was unremarkable. MRI of the brain is unremarkable. She also had carotid Doppler done that was unremarkable. Patient had speech therapy evaluation, was found to have nasal twang. I also got ENT involved. Patient was transferred to TCU for rehab. She said her stay was uneventful. She received physical therapy. Gait is better. PHYSICAL EXAMINATION: GENERAL: She is awake, alert, oriented, and communicate. VITAL SIGNS: She is afebrile, pulse 95, respirations 20, and blood pressure 116/59. LUNGS: Bilateral fair airflow. No rhonchi or crackles. HEART: S1 and S2, audible. ABDOMEN: Soft and nontender. No rebound. No guarding. NEUROLOGIC: Patient is awake, alert, and able to communicate. ASSESSMENT: 1. Unstable gait. 2. Multiple fall. 3. Nasal twang speech. 4. Dysphonia. DISCHARGE PLAN: Patient is being discharged home today. She will continue physical therapy and speech therapy as outpatient. She will follow up with neurologist as outpatient. We will follow up the patient in office in 2-3 . Todd Gates MD
== END 2018-08-10 13:32 | disposition home or self-care (01) | DRG 946 ==
LOC: TRCU 14:10
PROVIDERS: ADMIT Internal Medicine; ATTEND Internal Medicine
PROC: F07Z9ZZ Gait Training/Functional Ambulation Treatment (ICD-10-PCS; principal; 2018-08-03)
PROC: F07Z5ZZ Bed Mobility Treatment (ICD-10-PCS; 2018-08-03)
PROC: F07L6YZ Therapeutic Exercise Treatment of Musculoskeletal System - Lower Back / Lower Extremity using Other Equipment (ICD-10-PCS; 2018-08-03)
PROC: F08Z1ZZ Dressing Techniques Treatment (ICD-10-PCS; 2018-08-06)
PROC: F08Z2ZZ Grooming/Personal Hygiene Treatment (ICD-10-PCS; 2018-08-06)
DX: R53.1 Weakness (principal); B34.9 Viral infection, unspecified; R13.10 Dysphagia, unspecified; R47.02 Dysphasia; R49.0 Dysphonia; K21.9 Gastro-esophageal reflux disease without esophagitis; M17.0 Bilateral primary osteoarthritis of knee; S00.81XD Abrasion of other part of head, subsequent encounter; Z91.81 History of falling; R29.6 Repeated falls; Z96.641 Presence of right artificial hip joint

== ENCOUNTER 2018-09-21 13:23 | Inpatient (IN) | payer MEDICARE, OTHER ==
[2018-09-21 13:43] VITALS: BMI 21.2
--- NOTE | 2018-09-21 14:53 | ED PDOC ---
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 Patient states she was admitted to hospital in July and went through a rigorous workup to identify the cause of her generalized weakness. After a neurological consult, patient had brain MRI and CT chest/abd/pelvis which did not show any acute abnormalities. 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 Patient states upon discharge her weakness continues to increase making it difficult for her to eat at times. Patient states that the weakness increased so much that she is unable to do much of anything at home. This is why she decided to come to the hospital. Admits generalized weakness and dysarthria. Denies fevers, chills, chest pain, sob, n/v, constipation or diarrhea, and dysuria. 09/21/18 14:54 Time/Duration: > month Symptom Onset: Gradual Symptom Course: Worsening Severity Level: Severe <Link Rock - Last Filed: 09/21/18 16:17> <Khurram Edge - Last Filed: 09/21/18 18:49> - General Chief Complaint: Abdominal Pain Time Seen by Provider: 09/21/18 13:31 Past Medical History - Provider Review Nursing Documentation Reviewed: Yes Primary Care Provider: Todd Gates - Infectious Disease Hx of Infectious Diseases: None - Tetanus Immunization Tetanus Immunization: Unknown - Reproductive Menopause: Yes - Cardiac Hx Cardiac Disorders: No - Pulmonary Hx Respiratory Disorders: No - Neurological Hx Neurological Disorder: Yes Other/Comment: weakness of unknown cause (positive IgG antibody for EBV) - HEENT Hx HEENT Disorder: No - Renal Hx Renal Disorder: No - Endocrine/Metabolic Hx Endocrine Disorders: No - Hematological/Oncological Hx Blood Disorders: Yes Other/Comment: JUANIS BARDALES - Integumentary Hx Dermatological Disorder: No - Musculoskeletal/Rheumatological Hx Arthritis: Yes - Gastrointestinal Hx Gastrointestinal Disorders: Yes (ulcer PUD,HIATAL HERNIA,GASTRITIS) - Genitourinary/Gynecological Hx Genitourinary Disorders: No Hx Reproductive Disorders: No - Psychiatric Hx Psychophysiologic Disorder: No Hx Substance Use: No - Surgical History Other/Comment: R hip surgery. R elbow surgery. R shoulder surgery - Anesthesia Hx Anesthesia: Yes Hx Anesthesia Reactions: No Hx Malignant Hyperthermia: No <Pranav,Madaser - Last Filed: 09/21/18 16:17> Family/Social History - Physician Review Nursing Documentation Reviewed: Yes Family/Social History: Neoplasm/Cancer (ovarian cancer sister) Smoking Status: Never Smoked Hx Alcohol Use: No Hx Substance Use: No <Pranav,Madaser - Last Filed: 09/21/18 16:17> Allergies/Home Meds <Pranav,Madaser - Last Filed: 09/21/18 16:17> <Bosompem,Khurram - Last Filed: 09/21/18 18:49> Allergies/Adverse Reactions: Allergies No Known Allergies Allergy (Verified 09/21/18 13:48) Home Medications: Home Meds Medication Instructions Recorded Confirmed Pantoprazole [Protonix EC Tab] 40 mg PO DAILY 08/03/18 08/03/18 Review of Systems - Physician Review All systems were reviewed & negative as marked: Yes - Review of Systems Constitutional: Fatigue. absent: Weight Change, Night Sweats Eyes: Normal ENT: Voice Changes Respiratory: Normal. absent: SOB, Cough, Sputum Cardiovascular: Normal. absent: Chest Pain, Palpitations, Edema Gastrointestinal: Normal. absent: Abdominal Pain, Constipation, Diarrhea, Nausea, Vomiting Skin: Normal. absent: Rash, Pruritis, Skin Lesions, Laceration Neurological: Speech Changes. absent: Headache, Dizziness, Focal Weakness, Gait Changes, Facial Droop, Disequilibrium Endocrine: Normal. absent: Diaphoresis, Polyuria, Polydipsia Psychiatric: Normal. absent: Anxiety, Depression <Pranav,Madaser - Last Filed: 09/21/18 16:17> Physical Exam Temperature: Afebrile Blood Pressure: Normal Pulse: Regular Respiratory Rate: Normal Appearance: Positive for: Well-Appearing, Non-Toxic, Comfortable Pain Distress: None Mental Status: Positive for: Alert and Oriented X 3 - Systems Exam Head: Present: Atraumatic, Normocephalic Pupils: Present: PERRL Extroacular Muscles: Present: EOMI Mouth: Present: Moist Mucous Membranes Respiratory/Chest: Present: Clear to Auscultation, Good Air Exchange. No: Respiratory Distress, Accessory Muscle Use Cardiovascular: Present: Regular Rate and Rhythm, Normal S1, S2. No: Murmurs, Irregular Rhythm Abdomen: Present: Normal Bowel Sounds. No: Tenderness, Distention, Peritoneal Signs Upper Extremity: Present: Normal Inspection. No: Cyanosis, Edema, Normal ROM Lower Extremity: Present: Normal Inspection. No: Edema, CALF TENDERNESS, NORMAL PULSES Neurological: Present: GCS=15, CN II-XII Intact, Normal Sensory Function. No: Speech Normal Skin: Present: Warm, Dry, Normal Color Psychiatric: Present: Alert, Oriented x 3, Normal Insight, Normal Concentration <Pranav,Madaser - Last Filed: 09/21/18 16:17> Medical Decision Making ED Course and Treatment: 09/21/18 14:57 Impression 67 yo female w/ PMH of PUD ulcer, hiatal hernia, generalized weakness, dysarthria, and EBV evaluated in ED for progressive generalized weakness with continued dysarthria. Prior auto-immune workup and neurological workup yielded no specific etiology for weakness. In prior admission, patient was transferred to TCU with plan to continue to physical therapy (dx at that time was EBV). Plan -CBC -CMP -Mag/Phos -recommend neurological workup to r.o (motor neuron disorders- ALS, consider LEMS vs MGs, consider myopathy disorders) -CK, CRP, ESR -recommend EMG Prior Visits 06-05-18: dysartrhia 07-15-18: fatigue, weakness 07-29-18: fatigue, weakness Progress Notes Spoke with neurologist manager of information as Dr. Swann is away- Dr. Wagner suggested to get Brain MRI w/ contrast Spoke with Dr. Gates (primary doctor) accepted the patient to her service. No explicit orders were given to be placed. Patient will be admitted to medicine floors 09/21/18 16:17 Re-evaluation Time: 16:18 Reassessment Condition: Unchanged - Lab Interpretations I have reviewed the lab results: Yes Interpretation: All labs normal - Transfer of Care Pending Radiology Studies:: Brain MRI with contrast <Harry Rockaser - Last Filed: 09/21/18 16:17> ED Course and Treatment: 09/21/18 18:48 Patient Seen with Resident: In agreement with resident note which contains more details about the patient. Patient seen and evaluated with resident. Came up with plan and treatment together. - Lab Interpretations Lab Results: Total Bilirubin 0.6 mg/dL (0.2-1.3) 09/21/18 15:24 AST 33 U/L (14-36) 09/21/18 15:24 ALT 20 U/L (7-56) 09/21/18 15:24 Alkaline Phosphatase 67 U/L (38-126) 09/21/18 15:24 Total Protein 7.0 g/dL (5.8-8.3) 09/21/18 15:24 Albumin 4.0 g/dL (3.0-4.8) 09/21/18 15:24 Globulin 3.0 gm/dL 09/21/18 15:24 Albumin/Globulin Ratio 1.3 (1.1-1.8) 09/21/18 15:24 - RAD Interpretation Radiology Orders: 09/21/18 16:10 BRAIN WITH CONTRAST [MRI] Routine <Khurram Edge - Last Filed: 09/21/18 18:49> - PA / [employer] / Resident Statement SIOBHAN has reviewed & agrees with the documentation as recorded. / has examined the patient and agrees with the treatment plan. <Khurram Edge - Last Filed: 09/21/18 18:49> Disposition/Present on Arrival - Present on Arrival Any Indicators Present on Arrival: No History of DVT/PE: No History of Uncontrolled Diabetes: No Urinary Catheter: No History of Decub. Ulcer: No History Surgical Site Infection Following: None - Disposition Have Diagnosis and Disposition been Completed?: Yes Disposition Time: 16:19 Patient Plan: Admission <Link Rock - Last Filed: 09/21/18 16:17> <Khurram Edge - Last Filed: 09/21/18 18:49> - Disposition Diagnosis: Weakness, Multiple falls, Dysarthria Disposition: HOSPITALIZED Condition: STABLE
[2018-09-21 15:34] LABS: BASO # 0.03 K/mm3 (0.0-2.0); BASO % 0.5 % (0.0-3.0); EOS # 0.1 (0.0-0.7); EOS % 0.8 % (1.5-5.0); HEMOGLOBIN 12.9 g/dL (12.0-16.0); LYMPH # 1.3 (1.2-3.4); LYMPH % 21.6 % (22.0-35.0); MEAN CORPUSCULAR HEMOGLOBIN 29.9 pg (25.0-35.0); MEAN CORPUSCULAR HGB CONC 32.9 g/dl (31.0-37.0); MEAN PLATELET VOLUME 9.8 fl (7.0-11.0); MONO # 0.6 (0.1-0.6); MONO % 9.5 % (1.0-6.0); RBC 4.31 10^6/uL (3.5-6.1); RED CELL DISTRIBUTION WIDTH 13.1 % (11.5-14.5); WHITE BLOOD COUNT 5.9 10^3/uL (4.5-11.0)
[2018-09-21 15:43] LABS: ALB/GLOB RATIO 1.3 (1.1-1.8); ALT/SGPT 20 U/L (7-56); AST/SGOT 33 U/L (14-36); BLOOD UREA NITROGEN 27 mg/dL (7-21); CALCIUM 9.7 mg/dL (8.4-10.5); GFR NON-AFRICAN AMERICAN > 60
[2018-09-21] MEDS ORDERED: Pneumococcal 23-Valent Vaccine IM ONE (22:06)
[2018-09-22] MEDS ORDERED: Aspirin 325 mg EC Tablets PO STA ×2 (00:02)
--- NOTE | 2018-09-22 00:05 | CP.PCM.PN ---
Subjective - Date & Time of Evaluation Date of Evaluation: 09/22/18 Time of Evaluation: 00:05 - Subjective Subjective: When I was on the floor, nurse Cristal asked me to evaluate patient. She felt that patient had left sided weakness, although she came in with generalized weakness. I examined patient at bedside. She speaks with dysathria. Tries to states that she has equal strength in both upper and lower extremities. Medical record was reviewed. This 67 year old white woman was admitted with increased progressive generalized weakness. Has PMH of EBV, hiatal hernia, PUD, dysarthria , weakness. Objective - Vital Signs/Intake and Output Vital Signs (last 24 hours): Temp Pulse Resp BP Pulse Ox 98.1 F 69 18 135/76 99 09/21/18 23:00 09/21/18 23:00 09/21/18 23:00 09/21/18 23:00 09/21/18 23:00 - Medications Medications: Current Medications Aspirin (Ecotrin) 325 mg PO STAT STA Stop: 09/22/18 00:03 - Labs Labs: 09/21/18 15:24 09/21/18 15:24 - Constitutional Appears: No Acute Distress - Head Exam Head Exam: ATRAUMATIC, NORMAL INSPECTION, NORMOCEPHALIC - Eye Exam Eye Exam: Normal appearance - ENT Exam ENT Exam: Normal External Ear Exam - Neck Exam Neck Exam: Normal Inspection - Respiratory Exam Respiratory Exam: NORMAL BREATHING PATTERN - Cardiovascular Exam Cardiovascular Exam: absent: JVD - GI/Abdominal Exam GI & Abdominal Exam: absent: Distended - Rectal Exam Rectal Exam: Deferred - Exam Additional comments: Deferred. - Extremities Exam Extremities Exam: Normal Inspection Additional comments: Muscle power:RUE and RLE 4/5. LUE and LLE 3/5. Sensation intact both sides. 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 Dysarthria. PUD. Plan: CT head without contrast--No acute lesion. ASA 300 mg rectally. Neurocheck. Awaiting evaluation by neurologist. See my today's note with pesticide use medical coordinator elsewhere. Discussed with PMD.
--- NOTE | 2018-09-22 02:26 | CP.PCM.PCO ---
<Pa Jay - Last Filed: 09/22/18 02:21> Addendum Addendum: 09/22/18 02:21 Nursing staff paged resident for one-sided weakness I went to evaluated pt, pt appears to have dysphonia, talking. She was alert and awake, able to write down questions. She was able to move all extremities spontaneously, obeying commands. VS: BP: 135/76, P:69 SpO2: 99% on RA Sensation intact b/l upper/lower extremities CN grossly intact. No focal deficits noted L sided 4/5 strength, R side 5/t strength A/P: Stat CT ordered, returned negative for acute findings. No signs of hemorrhage Pt failed swallow eval, aspirin 300mg rc ordered lipid panel ordered for am Neuro already consulted <Josselin Fang - Last Filed: 09/22/18 14:20> Attending/Attestation - Attestation I have personally seen and examined this patient.: Yes I have fully participated in the care of the patient.: Yes I have reviewed all pertinent clinical information: Yes
[2018-09-22 06:50] LABS: HDL CHOLESTEROL 53 mg/dL (29-60)
[2018-09-22 07:01] LABS: LDL CHOLESTEROL 85 mg/dL (0-129)
--- NOTE | 2018-09-22 07:12 | CARD ---
APPROVED REPORT Date of service: 09/21/2018 EKG Measurement Heart [id number] <Conclusion> Normal sinus rhythm Left axis deviation Abnormal ECG
--- NOTE | 2018-09-22 08:07 | CT ---
Date of service: 09/22/2018 PROCEDURE: CT HEAD WITHOUT CONTRAST. HISTORY: left side weaker than right side COMPARISON: 07/29/2018. TECHNIQUE: Axial computed tomography images were obtained through the head/brain without intravenous contrast. Supplemental Coronal and Sagittal projections created and reviewed. Radiation dose: Total exam DLP = 892.61. MGy-cm. This CT exam was performed using one or more of the following dose reduction techniques: Automated exposure control, adjustment of the mA and/or kV according to patient size, and/or use of iterative reconstruction technique. FINDINGS: HEMORRHAGE: No intracranial hemorrhage. BRAIN: No mass effect or edema. No atrophy or chronic microvascular ischemic changes. VENTRICLES: Unremarkable. No hydrocephalus. CALVARIUM: Unremarkable. PARANASAL SINUSES: Chronic left maxillary sinus unchanged. MASTOID AIR CELLS: Opacification of left mastoid air cells, similar findings noted previously. OTHER FINDINGS: None. IMPRESSION: No acute intracranial abnormalities. No significant findings to account for the clinical presentation. No significant interval change compared to the prior examination(s). Concordant results (preliminary interpretation) provided by [facility]. Procedure Completed: 00:02. Preliminary Report: Interpreted and electronically signed: 00:41 Final Interpretation: 08:04.
[2018-09-22] MEDS ORDERED: Gadodiamide 287 MG/ML VIAL (15ML) IV ONE (10:04)
--- NOTE | 2018-09-22 10:33 | MRI ---
Date of service: 09/22/2018 PROCEDURE: MRI BRAIN WITH AND WITHOUT CONTRAST HISTORY: generalized weakness COMPARISON: 07/30/2018 TECHNIQUE: Multiplanar, multisequence MR images of the brain were obtained with and without intravenous contrast enhancement. 15 cc of Omniscan FINDINGS: HEMORRHAGE: None DWI: No evidence of an acute or early subacute infarction. BRAIN PARENCHYMA: There is a cavernous hemangioma in the right temporal lobe measuring 8 mm in diameter. There is a well-circumscribed hemosiderin rim. The finding is unchanged. The remainder the brain parenchyma is normal. ENHANCEMENT: No abnormal intracranial enhancement. VENTRICLES: Unremarkable. No hydrocephalus. CRANIUM: Unremarkable. ORBITS: Grossly unremarkable. PARANASAL SINUSES/MASTOIDS: There is fluid opacification of the mastoid air cells bilaterally VASCULAR SYSTEM: Skull base flow voids intact. OTHER FINDINGS: None . IMPRESSION: No acute intracranial findings. Cavernous hemangioma in the right temporal lobe unchanged. Fluid in the mastoid air cells bilaterally
[2018-09-22 10:39] LABS: FREE T4 1.31 ng/dL (0.78-2.19)
[2018-09-22] MEDS ORDERED: Dextrose 5%/0.45% NS 1,000 ML IV SCH (13:00)
--- NOTE | 2018-09-22 14:48 | CP.PCM.PCO ---
Physician Communication Note - Physician Communication Note Physician Communication Note: swallow eval pending, PT recommended ROSIO
[2018-09-22] MEDS: Sodium Chloride 0.9% 1,000 ML IV SCH (17:30)
--- NOTE | 2018-09-22 21:36 | HP ---
DATE OF EXAM: 09/22/2018 HISTORY OF PRESENT ILLNESS: The patient is a 67-year-old female who came to emergency room because of increasing weakness. She complain of progressive generalized weakness, difficulty walking, and difficulty swallowing. She was admitted in July and had extensive workup was done and all seem to be normal. PAST MEDICAL HISTORY: Significant for: 1. Hiatal hernia. 2. Peptic ulcer disease. 3. History of Jennifer-Hammond virus; otherwise, she has no significant past medical history. 4. She has gastritis off and on. ALLERGIES: SHE IS NOT ALLERGIC TO ANY MEDICATION. SOCIAL HISTORY: She lives with her son. Denies smoking, drinking, or alcohol use. MEDICATIONS AT HOME: She only takes Tylenol and tramadol as needed. She is on vitamin D. PHYSICAL EXAMINATION: GENERAL: She is awake, alert and able to communicate, but she talks in low tone and she does complain of swallowing difficulty. VITAL SIGNS: She is afebrile, pulse 68, respirations 20, and blood pressure 99/58. LUNGS: Bilateral fair airflow. No rhonchi or crackle. HEART: S1 and S2 audible. ABDOMEN: Soft and nontender. No rebound. No guarding. NEUROLOGIC: The patient is awake, alert, and able to communicate. LABORATORY DATA: WBC 5.9, hemoglobin 12.9, hematocrit 39.2, and platelet 268. Chemistry; sodium 141, potassium 4.4, chloride 106, CO2 of 29, BUN 27, creatinine 0.6, and blood sugar of 85. ASSESSMENT: 1. Progressive dysphagia and progressive dysphonia. 2. . 3. Generalized weakness. PLAN: At this point, etiology unclear, I will request for swallowing evaluation. I will order blood work for CREST syndrome and in the meantime, I will start her on some IV fluids. Extensive workup has been done in July, we will reevaluate, order MRI of the brain, rule out multiple sclerosis. MRI of the brain has been ordered. We will follow. Todd Gates MD
[2018-09-23] MEDS: Sodium Chloride 0.9% 1,000 ML IV SCH ×2 (06:01→18:34)
--- NOTE | 2018-09-23 10:21 | CP.PCM.PCO ---
Physician Communication Note - Physician Communication Note Physician Communication Note: pt.seen w.hoarse voice noted,neuro eval completed,PT rec.ROSIO
--- NOTE | 2018-09-23 14:43 | PN ---
DATE: 09/23/2018 SUBJECTIVE: The patient is 67-year-old, seen and examined, came in because of increasing weakness, difficulty swallowing, difficulty talking and difficulty walking. The patient states she usually lives by herself. She was advised to followup with the neurologist as outpatient, but she states she is so weak that she was unable to get out of the house, sometime she goes to son's house who is usually out for work and her weakness has gotten worse, so she came to ER. PHYSICAL EXAMINATION: VITAL SIGNS: She is afebrile. Pulse 81, respiration 20 and blood pressure 105/64. LUNGS: Bilateral fair airflow. No rhonchi or crackle. HEART: S1 and S2, audible. ABDOMEN: Soft and nontender. No rebound. No guarding. NEUROLOGIC: The patient is awake, alert and able to communicate, but speaks very low tone and has difficulty articulating certain words. The patient was evaluated by speech therapist and for dysphagia evaluation. She seems to have oropharyngeal dysphagia and she is at risk of aspirations with interior leakage and she had denied pharyngeal swallow. LABORATORY DATA: The patient had MRI done that is unremarkable. Thyroid profile is unremarkable. She seems to be little dehydrated. ASSESSMENT AND PLAN: 1. Progressive dysphagia and aphasia, etiology unclear yet. MRI is negative. 2. We will discuss with neurologist to rule out autoimmune workup. We will make plan for subacute rehab. We will make disposition plan according to after communicating with neurologist. Todd Gates MD
--- NOTE | 2018-09-23 15:09 | CP.PCM.CON ---
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 Joyce, who is here for evaluation of abdominal discomfort. I spoke to Akshat Louis who related that she would have IVIG on outpatient b asis. MRI shows a 8mm cavernous angioma in the temporal lobe that is unrelated. plan: 1. IVIG outpatient. 2. Neurosurgical consult outpatient. 3. FOllow up with Dr. louis. DR. wang Neurology Past Patient History - Infectious Disease Hx of Infectious Diseases: None - Tetanus Immunizations Tetanus Immunization: Unknown - Past Social History Smoking Status: Never Smoked - CARDIAC Hx Cardiac Disorders: No - PULMONARY Hx Respiratory Disorders: No - NEUROLOGICAL Hx Neurological Disorder: Yes (frequent falls recent) Hx Dizziness: Yes Other/Comment: weakness of unknown cause (positive IgG antibody for EBV), dx july 2018. speech very slow and has problem enunciating words, pt thinks her voice sounds different since may 2018 - HEENT Hx HEENT Problems: Yes - RENAL Hx Chronic Kidney Disease: No - ENDOCRINE/METABOLIC Hx Endocrine Disorders: No - HEMATOLOGICAL/ONCOLOGICAL Hx Blood Disorders: Yes Other/Comment: JUANIS BARDALES - INTEGUMENTARY Hx Dermatological Problems: No - MUSCULOSKELETAL/RHEUMATOLOGICAL Hx Arthritis: Yes - GASTROINTESTINAL Hx Gastrointestinal Disorders: Yes (ulcer PUD,HIATAL HERNIA,GASTRITIS) Other/Comment: weight loss, poor appetite - GENITOURINARY/GYNECOLOGICAL Hx Genitourinary Disorders: No - PSYCHIATRIC Hx Substance Use: No - SURGICAL HISTORY Hx Surgeries: Yes Other/Comment: R hip surgery fx from fall. R elbow surgery. R shoulder surgery rotator cuff - ANESTHESIA Hx Anesthesia: Yes Hx Anesthesia Reactions: No Hx Malignant Hyperthermia: No Meds Allergies/Adverse Reactions: Allergies Allergy/AdvReac Type Severity Reaction Status Date / Time No Known Allergies Allergy Verified 09/21/18 13:48 - Medications Medications: Current Medications Sodium Chloride (Sodium Chloride 0.9%) 1,000 mls @ 75 mls/hr IV .[id number] CORNELIUS Last Admin: 09/23/18 06:01 Dose: 75 mls/hr Results - Vital Signs Recent Vital Signs: Last Vital Signs Temp 97.7 F 09/23/18 06:00 Pulse 81 09/23/18 10:00 Resp 20 09/23/18 06:00 BP 105/64 09/23/18 06:00 Pulse Ox 96 09/23/18 06:00 - Labs Result Diagrams: 09/21/18 15:24 09/21/18 15:24
--- NOTE | 2018-09-23 15:36 | CP.PCM.APN ---
Subjective - Date & Time of Evaluation Date of Evaluation: 09/23/18 Time of Evaluation: 10:00 - Subjective Subjective: Pt. seen and examined, noted to have leg weakness b/l and complains of hoarse voice. No other complaints , pt. passed swallow eval, puree diet rec.w/honey thick liquids. Objective - Vital Signs/Intake and Output Vital Signs (last 24 hours): Temp Pulse Resp BP Pulse Ox 97.7 F 81 20 105/64 96 09/23/18 06:00 09/23/18 10:00 09/23/18 06:00 09/23/18 06:00 09/23/18 06:00 Intake and Output: 09/23/18 09/23/18 06:59 18:59 Intake Total 660 Output Total 900 Balance -240 - Medications Medications: Current Medications Sodium Chloride (Sodium Chloride 0.9%) 1,000 mls @ 75 mls/hr IV .[id number] CORNELIUS Last Admin: 09/23/18 06:01 Dose: 75 mls/hr - Labs Labs: 09/21/18 15:24 09/21/18 15:24 - Constitutional Appears: Well, Non-toxic - Head Exam Head Exam: NORMOCEPHALIC - Eye Exam Eye Exam: Normal appearance Pupil Exam: NORMAL ACCOMODATION - ENT Exam ENT Exam: Mucous Membranes Moist, Normal Exam - Neck Exam Neck Exam: Full ROM - Respiratory Exam Respiratory Exam: Clear to Ausculation Bilateral - Cardiovascular Exam Cardiovascular Exam: +S1, +S2 - GI/Abdominal Exam GI & Abdominal Exam: Soft, Normal Bowel Sounds - Rectal Exam Rectal Exam: Deferred - Exam Exam: absent: Circumcision, NORMAL INSPECTION, Scrotal Swelling, Testicular Tenderness, Uretheral Discharge, Testicular Vertical Lie, Bladder Distension External exam: absent: Ecchymosis, Erythema, Lacerations, Lesions, NORMAL EXTERNAL EXAM, Swelling Bimanual exam: absent: Adenexal Mass, Adnexal, Cervical Motion Tendernes, NORMAL BIMANUAL EXAM, Uterine Enlargement, Uterine Tenderness - Extremities Exam Extremities Exam: Full ROM, Normal Inspection - Back Exam Back Exam: NORMAL INSPECTION - Neurological Exam Neurological Exam: Alert, Awake - Psychiatric Exam Psychiatric exam: Anxious - Skin Skin Exam: Dry, Intact Assessment and Plan - Assessment and Plan (Free Text) Assessment: ITS Impressions Head CT 09/22/18 00:04 IMPRESSION: No acute intracranial abnormalities. No significant findings to account for the clinical presentation. No significant interval change compared to the prior examination(s). Concordant results (preliminary interpretation) provided by [facility]. Procedure Completed: 00:02. Preliminary Report: Interpreted and electronically signed: 00:41 Final Interpretation: 08:04. Brain MRI 09/22/18 09:45 IMPRESSION: No acute intracranial findings. Cavernous hemangioma in the right temporal lobe unchanged. 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 Plan: 1. Generalized weakness maybe r.t EBV, as per Neuro, PT rec. Acute rehab, no improvement in symptoms, patient unable to speak/complete full sentence, further recs per Neuro, . pt. rec Acute rehab, SW/Cm for DC planning to acute rehab.
[2018-09-24] MEDS ORDERED: Barium Sulfate Susp 2.1% w/v, 2.0% w/w 450 mL Bottle PO ONE (00:32)
[2018-09-24 06:28] LABS: BASO # 0.02 K/mm3 (0.0-2.0); BASO % 0.4 % (0.0-3.0); EOS # 0.1 (0.0-0.7); EOS % 2.5 % (1.5-5.0); HEMOGLOBIN 11.8 g/dL (12.0-16.0); LYMPH # 1.6 (1.2-3.4); LYMPH % 33.8 % (22.0-35.0); MEAN CELL VOLUME 90.2 fl (80.0-105.0); MEAN CORPUSCULAR HEMOGLOBIN 29.6 pg (25.0-35.0); MEAN CORPUSCULAR HGB CONC 32.9 g/dl (31.0-37.0); MEAN PLATELET VOLUME 9.7 fl (7.0-11.0); MONO # 0.5 (0.1-0.6); MONO % 10.4 % (1.0-6.0); RBC 3.98 10^6/uL (3.5-6.1); WHITE BLOOD COUNT 4.8 10^3/uL (4.5-11.0)
[2018-09-24 06:47] LABS: ALB/GLOB RATIO 1.2 (1.1-1.8); ALBUMIN 3.3 g/dL (3.0-4.8); ALT/SGPT 18 U/L (7-56); AST/SGOT 23 U/L (14-36); BLOOD UREA NITROGEN 18 mg/dL (7-21); CALCIUM 9.3 mg/dL (8.4-10.5); GFR NON-AFRICAN AMERICAN > 60
[2018-09-24] MEDS: Sodium Chloride 0.9% 1,000 ML IV SCH (08:57)
[2018-09-24] MEDS ORDERED: Iohexol 300 100 ML IJ ONE (09:17)
--- NOTE | 2018-09-24 10:56 | CT ---
Date of service: 09/24/2018 PROCEDURE: CT Chest, Abdomen and Pelvis with intravenous contrast HISTORY: r/o lung mass COMPARISON: None available. TECHNIQUE: IV dose administered: 100 cc of Omni 300 Radiation dose: Total exam DLP = 381.6 mGy-cm. This CT exam was performed using one or more of the following dose reduction techniques: Automated exposure control, adjustment of the mA and/or kV according to patient size, and/or use of iterative reconstruction technique. FINDINGS: CT CHEST WITH CONTRAST: LUNGS: Clear. No nodule, mass or consolidation. Minimal atelectasis at the right lung base MEDIASTINUM: Unremarkable. Normal caliber aorta and pulmonary arterial trunk. No aortic dissection. Normal size heart. LYMPH NODES: Unremarkable. PLEURA: Unremarkable. No pneumothorax. No pleural fluid. BONES: Unremarkable. OTHER FINDINGS: None. CT ABDOMEN AND PELVIS: LIVER: Unremarkable. No gross lesion or ductal dilatation. GALLBLADDER AND BILE DUCTS: Unremarkable. PANCREAS: Unremarkable. No gross lesion or ductal dilatation. SPLEEN: Unremarkable. ADRENALS: Unremarkable. No mass. KIDNEYS AND URETERS: Unremarkable. No hydronephrosis. No solid mass. VASCULATURE: No aortic atherosclerotic calcification or mural plaque present. Unremarkable. No aortic aneurysm. BOWEL: There is mural thickening in the sigmoid colon which may be due to diverticular disease or localized colitis. There is mild constipation with fecal impaction APPENDIX: Normal appendix. PERITONEUM: Unremarkable. No free fluid. No free air. LYMPH NODES: Unremarkable. No enlarged lymph nodes. BLADDER: Unremarkable. REPRODUCTIVE: Unremarkable. BONES: There is a moderate compression deformity of L1. This is probably chronic. There is disc degeneration at L5-S1 OTHER FINDINGS: None. IMPRESSION: There is mural thickening in the sigmoid colon which may be due to diverticular disease or localized colitis. There is mild constipation with fecal impaction
--- NOTE | 2018-09-24 13:52 | CP.PCM.PCO ---
Additional Comments - Additional Comments Additional Comments: 1. Generalized weakness maybe r.t EBV, as per Neuro, PT rec. Acute rehab, no improvement in symptoms, patient unable to speak/complete full sentence, hoarse voice noted. further recs per Neuro, Acetylcholine, MUSK lab result pending. Per PMd , with discuss poss lumbar tap, and IVIG treatment x1 to monitor for improvement in symptoms, in setting of Jennifer Hammond Virus. pt. rec Acute rehab, [facility] for DC planning to acute rehab, Magda KIMBROUGH made aware of plan for acute rehab, poss [facility] as second option.
[2018-09-24 17:27] LABS: HEMOGLOBIN 12.9 g/dL (12.0-16.0); MEAN CELL VOLUME 89.7 fl (80.0-105.0); MEAN CORPUSCULAR HEMOGLOBIN 30.1 pg (25.0-35.0); MEAN CORPUSCULAR HGB CONC 33.6 g/dl (31.0-37.0); MEAN PLATELET VOLUME 9.5 fl (7.0-11.0); RBC 4.28 10^6/uL (3.5-6.1); RED CELL DISTRIBUTION WIDTH 12.9 % (11.5-14.5); WHITE BLOOD COUNT 7.2 10^3/uL (4.5-11.0)
--- NOTE | 2018-09-24 21:13 | CON ---
DATE: 09/24/2018 CONSULT REQUESTED BY: Todd Gates MD. REASON FOR CONSULTATION: Progressive polyneuropathy for consideration of IV-IgG. HISTORY OF PRESENT ILLNESS: Ms. Leavitt is a 67-year-old female admitted to the hospital with generalized weakness. She has progressive generalized weakness. She has difficulty walking. She stated that her weakness has progressed since April. She is communicating by writing. She is not able to speak. No respiratory distress. MRI of the brain done during this hospitalization is unremarkable. She had extensive workup done early in July and was found to have EBV infection. No cough with expectoration. No fever. No chills. No chest pain. PAST MEDICAL HISTORY: Positive for hiatal hernia, peptic ulcer, EBV infection, history of gastritis. ALLERGIES: NO KNOWN DRUG ALLERGIES. SOCIAL HISTORY: Lives with her son. No history of smoking, alcohol abuse. MEDICATIONS: Tylenol and tramadol as needed. REVIEW OF SYSTEMS: Positive for progressive weakness, difficulty in speech. No difficulty in swallowing. Rest of 12-point review of systems reviewed and negative. PHYSICAL EXAMINATION: GENERAL: Awake, alert, oriented, communicative. VITAL SIGNS: Stable. Temperature afebrile 98.7, heart rate 80 per minute, respiratory rate 18 per minute, oxygen saturation 98% on room air, blood pressure 100/70. HEENT: No pallor. NECK: No lymphadenopathy. CHEST: Air entry present, equal bilaterally. No added sounds. CARDIOVASCULAR: S1 and S2 normal. No murmur. No gallop. ABDOMEN: Soft and nontender. No hepatosplenomegaly. NEUROLOGIC: Speech unable to phonate. Alert, awake, oriented. LABORATORY DATA: White count 7.2, hemoglobin 12.9, hematocrit 38.4, and platelets 262. Sodium 140, potassium 3.9, creatinine 0.5, bilirubin 0.4. MEDICATIONS: IV fluids. ASSESSMENT: 1. Progressive dysphagia. 2. Progressive generalized weakness. 3. 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 Wagner, Neurology. PLAN: Recommended IV-IgG as outpatient. Discussed with Dr. Swann, Neurologist. He will evaluate her tomorrow morning. He will also do lumbar puncture if indicated. We will arrange immunoglobulin infusion if recommended by Neurology. Discussed with the staff nurse. Discussed with the patient. She is awaiting subacute rehab placement. . B12 level is more than 1000. Renal functions are within normal limits. CPK ordered. Thank you Dr. Gates, for allowing us to participate in Meaghan Dagmar's care. Donna Bailey MD NGA
[2018-09-25] MEDS: Sodium Chloride 0.9% 1,000 ML IV SCH (05:56)
--- NOTE | 2018-09-25 08:30 | PN ---
DATE: 09/24/2018 SUBJECTIVE: The patient is a 67-year-old, still complaining of dysphonia and dysphasia. She states her voice down and she started writing her complaints and complained of generalized weakness and extreme fatigue. She is sitting in a chair. PHYSICAL EXAMINATION: VITAL SIGNS: She is afebrile. Pulse 62, respirations 18, blood pressure . LUNGS: Bilateral fair airflow. No rhonchi or crackle. HEART: S1 and S2 audible. ABDOMEN: Soft, nontender. No rebound, no guarding. NEUROLOGICAL: The patient is awake and alert, able to communicate, but through writing. LABORATORY DATA: She had CT scan of the chest, abdomen, and pelvis done to rule out any occult malignancy, but they are unremarkable. I wanted to rule out Lambert-Eaton syndrome. She had an MRI done though it does not show any periventricular lesion. Otherwise, her WBC is 7.2, hemoglobin 12.9, hematocrit 38.4, platelets of 262. Chemistry: Sodium 140, potassium 3.9, chloride 108, CO2 of 28, BUN 18, creatinine 0.5. Blood sugar 194. ASSESSMENT AND PLAN: Progressive weakness, progressive dysphonia, progressive dysphasia. I discussed with Neurology. It is planned to do a lumbar puncture test done tomorrow and possible intravenous immunoglobulin infusion prior to making discharge plan. After that, we will talk about acute rehabilitation once we make a diagnosis. At this point, differential was Lambert-Eaton, multiple sclerosis and chronic inflammatory demyelinating polyneuropathy, and questionable amyotrophic lateral sclerosis. So far, we were able to rule out multiple sclerosis and Lambert-Eaton syndrome; however, lumbar puncture is needed to diagnose further and might need nerve or muscle biopsy if we are unable to make a final diagnosis. So, the plan is the patient is scheduled for lumbar puncture tomorrow and we will make further disposition plan. Todd Gates MD
--- NOTE | 2018-09-25 11:21 | CP.PCM.PCO ---
Physician Communication Note - Physician Communication Note Physician Communication Note: For lumbar spinal puncture today, plan acute rehab pend results,
[2018-09-25 11:28] LABS: INR 1.04; PARTIAL THROMBOPLASTIN TIME 31.6 Seconds (26.9-38.3); PROTHROMBIN TIME 11.8 SECONDS (9.4-12.5)
--- NOTE | 2018-09-25 13:34 | PN ---
DATE: 09/25/2018 SUBJECTIVE: The patient is 67 years old, seen and examined, still complains of difficulty expressing herself, dysphonia. Workup is in progress. She has CT of the chest, abdomen and pelvis and was found to be unremarkable for any malignancy; however, the patient is having increasing difficulty expressing herself. She started writing now. The patient is scheduled to have lumbar puncture done today. PHYSICAL EXAMINATION: GENERAL: She is awake and alert, communicating by writing, unable to make all she is trying to say. VITAL SIGNS: She is afebrile. Pulse 61, respirations 20 and blood pressure 101/62. LUNGS: Bilateral fair airflow. No rhonchi or crackles. HEART: S1 and S2 audible. ABDOMEN: Soft and nontender. No rebound. No guarding. NEUROLOGIC: The patient is awake and alert, able to ambulate, but has generalized weakness. ASSESSMENT: 1. Progressive dysphonia, progressive dysphagia and dysphasia. 2. Generalized weakness, history of Jennifer-Hammond virus. PLAN: So far, workup including MRI, CT of the abdomen, pelvis, and chest is unremarkable. No signs of malignancy. No signs of multiple sclerosis. We will get the lumbar puncture, if her proteins are high, she might need IVIG prior to discharge. If that did not improve her condition, we will have to do nerve and muscle biopsy. Todd Gates MD
--- NOTE | 2018-09-25 14:45 | RAD ---
Date of service: 09/25/2018 PROCEDURE: Fluoro guided lumbar puncture HISTORY: LUMBAR PUNCTURE COMPARISON: TECHNIQUE: Informed consent was obtained. The lower back was sterilely cleansed and draped. 1 percent lidocaine was used as local anesthetic. Lumbar puncture was made at the L3 level with a 22 gauge needle. Lumbar puncture was successful on the 1st attempt. 12 cc of clear colorless CSF were obtained. Fluoro time 0.9 minutes total dose 8.852 mGy FINDINGS: IMPRESSION: Successful lumbar puncture
[2018-09-25 14:53] LABS: FLUID TYPE SPINAL FLUID
[2018-09-25 15:03] LABS: CSF APPEARANCE CLEAR/COLORLESS (CLEAR); CSF VOLUME 3 mL (0-1)
[2018-09-25] MEDS: POLYETHYLENE GLYCOL 3350 17 GM/Dose PACKET PO SCH (17:56)
--- NOTE | 2018-09-25 18:18 | CP.PCM.CON ---
History of Present Illness - History of Present Illness History of Present Illness: 67y/o female with hx of CIDP (chronic inflammatory demyelinating polyneuropathy)-treated with IVIg, GERD and hiatal hernia. She is known to the ENT service for being seen last year for progressive voice dysfunction and was referred to neurology where the above diagnosis was obtained. The patient has had progressive voice and swallowing dysfunction. The patient denies pain. She has not been back to our office since seen last year. Review of Systems - Constitutional Constitutional: As Per HPI - EENT Eyes: As Per HPI Ears: As Per HPI Nose/Mouth/Throat: As Per HPI, Change in Voice, Hoarsness Additional comments: dysphagia - Cardiovascular Cardiovascular: As Per HPI - Respiratory Respiratory: As Per HPI - Musculoskeletal Musculoskeletal: As Per HPI - Integumentary Integumentary: As Per HPI - Neurological Neurological: As Per HPI - Psychiatric Psychiatric: As Per HPI - Endocrine Endocrine: As Per HPI - Hematologic/Lymphatic Hematologic: As Per HPI Past Patient History - Infectious Disease Hx of Infectious Diseases: None - Tetanus Immunizations Tetanus Immunization: Unknown - Past Social History Smoking Status: Never Smoked - CARDIAC Hx Cardiac Disorders: No - PULMONARY Hx Respiratory Disorders: No - NEUROLOGICAL Hx Neurological Disorder: Yes (frequent falls recent) Hx Dizziness: Yes Other/Comment: weakness of unknown cause (positive IgG antibody for EBV), dx july 2018. speech very slow and has problem enunciating words, pt thinks her voice sounds different since may 2018 - HEENT Hx HEENT Problems: Yes - RENAL Hx Chronic Kidney Disease: No - ENDOCRINE/METABOLIC Hx Endocrine Disorders: No - HEMATOLOGICAL/ONCOLOGICAL Hx Blood Disorders: Yes Other/Comment: JUANIS BARDALES - INTEGUMENTARY Hx Dermatological Problems: No - MUSCULOSKELETAL/RHEUMATOLOGICAL Hx Arthritis: Yes - GASTROINTESTINAL Hx Gastrointestinal Disorders: Yes (ulcer PUD,HIATAL HERNIA,GASTRITIS) Other/Comment: weight loss, poor appetite - GENITOURINARY/GYNECOLOGICAL Hx Genitourinary Disorders: No - PSYCHIATRIC Hx Substance Use: No - SURGICAL HISTORY Hx Surgeries: Yes Other/Comment: R hip surgery fx from fall. R elbow surgery. R shoulder surgery rotator cuff - ANESTHESIA Hx Anesthesia: Yes Hx Anesthesia Reactions: No Hx Malignant Hyperthermia: No Meds Allergies/Adverse Reactions: Allergies Allergy/AdvReac Type Severity Reaction Status Date / Time No Known Allergies Allergy Verified 09/21/18 13:48 - Medications Medications: Current Medications Acetaminophen (Tylenol 325mg Tab) 650 mg PO Q6H PRN PRN Reason: Pain, moderate (4-7) Last Admin: 09/25/18 17:59 Dose: 650 mg Sodium Chloride (Sodium Chloride 0.9%) 1,000 mls @ 75 mls/hr IV .[id number] [facility] Last Admin: 09/25/18 05:56 Dose: 75 mls/hr Polyethylene Glycol (Miralax) 17 gm PO DAILY [facility] Last Admin: 09/25/18 17:56 Dose: Not Given Physical Exam - Constitutional Appears: Well, Non-toxic - Head Exam Head Exam: ATRAUMATIC, NORMAL INSPECTION - Eye Exam Eye Exam: EOMI, Normal appearance Pupil Exam: NORMAL ACCOMODATION - ENT Exam ENT Exam: Mucous Membranes Moist Additional comments: Ears: mild cerumen bilaterally partially blocking TM Nose: mild rhinitis with septum deviation to the right Throat: white plaque on tongue with tongue fasiculations Neck supple no adenopathy Procedure: Direct Fiberoptic Laryngoscopy: procedure performed for limitation with mirror exam and patient gag along with anatomy limitations: afirin lidocaine topical applied in nose; scope advanced through left nares to oropharynx. no base of tongue/vallecula lesions identified supraglottic region then inspected: wnl, Glottic region revealed no masses or lesions with appropriate movement. Hypopharynx: appeared wnl. Patient tolerated the procedure well and findings documented. - Neck Exam Neck exam: Positive for: Full Rom, Normal Inspection. Negative for: Lym phadenopathy - Respiratory Exam Respiratory Exam: NORMAL BREATHING PATTERN Results - Vital Signs Recent Vital Signs: Last Vital Signs Temp 97 F L 09/25/18 15:54 Pulse 62 09/25/18 15:54 Resp 16 09/25/18 15:54 BP 96/56 L 09/25/18 15:54 Pulse Ox 97 09/25/18 15:54 - Labs Result Diagrams: 09/24/18 17:10 09/24/18 06:00 Labs: Laboratory Results - last 24 hr 09/22/18 09/25/18 09/25/18 13:25 06:15 07:30 PT INR APTT Total Creatine Kinase 53 Vitamin B12 > 1000 H Fluid Type CSF Volume CSF Appearance CSF WBC CSF RBC CSF Total Cell Counted CSF Monos/Macrophages CSF Comment CSF Glucose CSF Total Protein Anti-MuSK Ab Method See note Anti-MuSK Ab Results See note Anti-MuSK Ab Interp See note Anti-MuSK Ab Comment See note Anti-MuSK References See note 09/25/18 09/25/18 09/25/18 11:10 14:50 14:50 PT 11.8 INR 1.04 APTT 31.6 Total Creatine Kinase Vitamin B12 Fluid Type Spinal fluid CSF Volume 3 H CSF Appearance Clear/colorless CSF WBC 1.0 CSF RBC 4.0 H CSF Total Cell Counted TEST NOT PERFORMED CSF Monos/Macrophages TEST NOT PERFORMED CSF Comment TEST NOT PERFORMED CSF Glucose 57 CSF Total Protein 43.0 Anti-MuSK Ab Method Anti-MuSK Ab Results Anti-MuSK Ab Interp Anti-MuSK Ab Comment Anti-MuSK References Assessment & Plan (1) Oropharyngeal dysphagia Status: Acute (2) Dysarthria Status: Acute (3) Multiple falls Status: Acute (4) Weakness Status: Acute (5) Weight loss Status: Acute (6) Oropharyngeal candidiasis Status: Acute (7) Chronic inflammatory demyelinating polyneuropathy Status: Acute - Assessment and Plan (Free Text) Assessment: vocal cord movement wnl. dysarthria/dysphonia appears to be secondary to her demyelinating disorder (affecting tongue movement). Plan: your medical and neurology management of this patient's neurological condition. Speech therapy recommendations regarding feeding the patient. Treatment of oral yg.
[2018-09-25 22:49] LABS: ACETYLCHOLINE REC BIND AB <0.30 nmol/L
[2018-09-25 23:33] LABS: AChR BLOCKING ANTIBODIES <15 (<15)
[2018-09-26] MEDS: Sodium Chloride 0.9% 1,000 ML IV SCH ×3 (01:06→13:35)
[2018-09-26 07:50] LABS: HEMOGLOBIN 11.8 g/dL (12.0-16.0); MEAN CELL VOLUME 90.3 fl (80.0-105.0); MEAN CORPUSCULAR HEMOGLOBIN 29.5 pg (25.0-35.0); MEAN CORPUSCULAR HGB CONC 32.7 g/dl (31.0-37.0); RED CELL DISTRIBUTION WIDTH 13.2 % (11.5-14.5); WHITE BLOOD COUNT 4.4 10^3/uL (4.5-11.0)
[2018-09-26 07:53] LABS: ALB/GLOB RATIO 1.2 (1.1-1.8); ALBUMIN 3.4 g/dL (3.0-4.8); ALT/SGPT 19 U/L (7-56); AST/SGOT 21 U/L (14-36); BLOOD UREA NITROGEN 19 mg/dL (7-21); CALCIUM 9.4 mg/dL (8.4-10.5); GFR NON-AFRICAN AMERICAN > 60
[2018-09-26] MEDS: POLYETHYLENE GLYCOL 3350 17 GM/Dose PACKET PO SCH ×2 (09:50→10:16)
[2018-09-26] MEDS: Nystatin 100,000 Units/ml Oral Susp 5 ml UD PO SCH ×3 (13:35→22:35)
--- NOTE | 2018-09-26 13:50 | PN ---
DATE: 09/26/2018 SUBJECTIVE: The patient is 67-year-old, seen and examined. Continue to have dysphonia. Complaint of generalized weakness. Had lumbar puncture done yesterday. Awaiting for results. PHYSICAL EXAMINATION: GENERAL: She is awake, alert and able to communicate. Still has dysphonia and dysphagia. VITAL SIGNS: She is afebrile. Pulse 65, respiration 19 and blood pressure 110/59. LUNGS: Bilateral fair airflow. No rhonchi or crackle. HEART: S1 and S2, audible. ABDOMEN: Soft and nontender. No rebound. No guarding. NEUROLOGIC: The patient is awake, alert and able to communicate. LABORATORY DATA: CSF cultures are pending. WBC 4.4, hemoglobin 11.8, hematocrit 36 and platelet 255. Chemistry; sodium 140, potassium 3.8, chloride 107, CO2 of 23, BUN 19, creatinine 0.6 and blood sugar of 82. Thyroid profile is negative. CSF cytology shows RBCs of 4. WBC is 1 and glucose 57, total protein 43. PLAN: ENT input noted and appreciated. We will treat the patient for oral candidiasis, awaiting other blood test, extensive workup has been ordered. Continue physical therapy. We will follow up the patient. so far MS is ruled out and ele diaz is unlikly most probably it might be ALS will follow up ordered work up. Todd Gates MD MTDD
--- NOTE | 2018-09-26 15:34 | CON ---
DATE: 09/26/2018 NEUROLOGY CONSULT CHIEF COMPLAINT: Progressive weakness, dysphagia, and dysphonia. HISTORY OF PRESENT ILLNESS: This is a 67-year-old woman with past medical history of peptic ulcer disease, history of Jennifer-Hammond virus, who has been having since April to May, intermittent worsening falls and progressive generalized weakness especially in the lower extremities and was seen in 07/2018, here for lower extremity weakness, but did not have any dysphagia at that time and was told to follow up as an outpatient in the neurological office, but the patient did not followup. Now, she comes in with progressive generalized weakness, difficulty walking, difficulty swallowing in addition to dysphonia. The patient is under varieties of tests in terms of MRI of the brain, which showed no acute cranial abnormality. She has had spinal tap done which failed to show any central process with a normal protein and normal glucose and normal spinal fluid color. She had myasthenia workup, which was negative, total autoimmune profile, which is completely negative, normal B12 level and complete autoimmune workup from lupus to Sjogren's to complements to artifact overall negative as well. Upon my examination, I saw fasciculations on her bilateral size of the tongue, in addition fasciculations of bilateral thighs with left footdrop. She has progressive dysphonia and difficulty in swallowing at this point. I discussed that this possibly could be more on neuron disease in central. PAST MEDICAL HISTORY: As above. SOCIAL HISTORY: No illicit drug use, smoking, or EtOH abuse. REVIEW OF SYSTEMS: Fourteen-point review of systems is as per HPI. MEDICATIONS: Reviewed by nurse's reconciliation sheet. FAMILY HISTORY: Noncontributory. LABORATORY DATA: CSF tap shows total protein of 43, glucose 57, WBC is 1. Myasthenia and autoimmune workup is all negative. HSV is negative. Rheumatoid factor, THEA, Phillip antibodies, SM antibodies, SCL-70 antibodies, ribosomal antibodies, double-stranded DNA antibodies, , celiac profile, anti-parietal cell antibodies, complement levels all negative. MRI of the brain is negative for anything acute. PHYSICAL EXAMINATION: VITAL SIGNS: Temperature 98.3, pulse rate 65, blood pressure 110/59, respiratory rate of 18, oxygen saturation 95% on room air. HEENT: Atraumatic, normocephalic. PERRLA. Extraocular muscles intact. NECK: Supple. No JVD. No adenopathy noted. LUNGS: Clear to auscultation. No adventitious sounds. HEART: S1 and S2. Normal rate and rhythm. No murmurs, rubs or gallops. ABDOMEN: Soft, nontender, nondistended. Bowel sounds present. EXTREMITIES: No clubbing, no cyanosis. Peripheral pulses are 2+ felt bilaterally. NEUROLOGIC: The patient is alert and oriented to person and place. Slow attention process. Slow thought process. Recall after 5 minutes 0/3. Speech is hypophonic and has dysphonia. The patient has difficulty in swallowing. Slow orolingual movements. On her tongue outstretching, bilateral fasciculations all over the tongue. Motor examination; she has proximal lower extremity weakness in terms of rule out footdrop as well as fasciculation seen on the bilateral thighs intermittently. She also has atrophy of the bilateral lower extremities proximal as well as distal muscles. She is able to raise the both legs, but most likely 4+/5 and especially with possible muscle strengthening. Toes are downgoing bilaterally. Sensory exam; light touch and pinprick, proprioception, and vibration are intact. DTRs are 2+ throughout and brisk at knees. Coordination; [id number] is intact. No dysmetria noted. Gait is deferred for now. IMPRESSION: 1. This is a 67-year-old woman with history of Jennifer-Hammond virus, peptic ulcer disease, comes in 4 or 5 months of progressive lower extremity weakness, generalized weakness, loss of weight, difficulty in walking and multiple falls, and now presents with difficulty swallowing. On neuro examination; there is bilateral fasciculations of her tongue as well as bilateral thighs in addition to left footdrop and thus severe muscle wasting in the bilateral lower extremities, most likely in the proximal muscles. All consistent with motor neuron disease, amyotrophic lateral sclerosis type. She has an extensive workup, which has been all normal given her extensive neuro examination and neurological history, this is clearly consistent motor neuron disease, amyotrophic lateral sclerosis type. At this time, we will recommend more palliative approach in terms of possible PEG tube and she has difficulty in swallowing to avoid aspiration of food. 2. Monitored her slow vital capacity and functional vital capacity as per pulmonary, and need pulmonary intervention and pulmonary toileting. 3. Could consider riluzole 50 mg p.o. b.i.d. for amyotrophic lateral sclerosis. 4. We will possible need outpatient EMG in addition, will possibly could consider of an infusion for amyotrophic lateral sclerosis medications, but we will put that on hold until her supportive treatments are intact. 5. We will recommend acute rehab as well in addition to pulmonary care. Case discussed with the patient and primary care physician. Thank you for this consult. Akshat Swann MD
[2018-09-26 19:38] LABS: ACETYLCHOLINE REC MOD AB 17
[2018-09-27] MEDS: Nystatin 100,000 Units/ml Oral Susp 5 ml UD PO SCH (09:21)
[2018-09-27] MEDS: POLYETHYLENE GLYCOL 3350 17 GM/Dose PACKET PO SCH (09:21)
[2018-09-27] MEDS: Sodium Chloride 0.9% 1,000 ML IV SCH (12:14)
[2018-09-27 23:32] LABS: CERULOPLASMIN 30 mg/dL (18-53)
[2018-09-28 07:47] LABS: METHYLMALONIC ACID,SERUM 116 nmol/L (87-318)
--- NOTE | 2018-09-28 09:04 | PN ---
DATE: 09/27/2018 SUBJECTIVE: The patient has no complaints of any chest pain. No shortness of breath. No headaches. PHYSICAL EXAMINATION: VITAL SIGNS: Temperature is 97.9, pulse is 73, blood pressure is 116/71, respirations 19. GENERAL: The patient is lying in bed, flat, comfortable. HEENT: No oral lesion. Anicteric sclerae. Moist mucosa. NECK: No JVD, adenopathy, or thyromegaly. CARDIOVASCULAR: S1 and S2, regular. No murmurs, rubs, or gallops. LUNGS: Clear to auscultation bilaterally. No wheeze, rales, or rhonchi. ABDOMEN: Bowel sounds are positive, soft, nontender and nondistended. EXTREMITIES: No cyanosis, clubbing or edema. LABORATORY DATA: White count of 4.4 and hemoglobin 11.8. Creatinine 0.6. ASSESSMENT: 1. Dysphagia. 2. Dystonia. 3. Gait dysfunction. 4. Peptic ulcer disease. 5. Weakness, generalized. PLAN: The patient is being evaluated for her generalized weakness. She is on Diflucan; this will be continued. She is not able to take the nystatin. I will discontinue the patient's nystatin. I spoke with the nursing staff about this. The patient is on intravenous fluids. I will decrease the patient's intravenous fluids to 50 mL for maintenance. She is currently tolerating her diet. Her B12 levels are greater than 1000. TSH is normal. She has HSV 1 and 2 that is pending. The patient's other workup is pending by Neurology. She had a lumbar puncture done that was fairly normal. Jersey Acosta MD
[2018-09-28] MEDS: POLYETHYLENE GLYCOL 3350 17 GM/Dose PACKET PO SCH (11:06)
--- NOTE | 2018-09-28 12:26 | CP.PCM.CON ---
<SheppardCirilo - Last Filed: 09/28/18 16:51> History of Present Illness - History of Present Illness History of Present Illness: Cirilo Sheppard- Internal Medicine Resident-Consult Note on Behalf on Dr. 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 GI team was consulted for management/recs regarding the patients dysphagia and to assess if the patient is a candidate for PEG tube placement. Patient seen and examined at bedside. No acute events since admission. Admits to worsening generalized weakness since April 2018. States she also is experiencing gradual worsening of swallowing food and difficulty with speech. Able to swallow honey thickened liquids without pain, coughing, drooling, choking, and difficulty. Denies abdominal pain, nausea, vomiting, diarrhea, constipation, bright red blood per rectum, black stools, and changes in stool caliber. Futher denies fevers, chills, chest pain, sob, and urinary symptoms. 12 point ROS negative except as indicated in the HPI Past medical history: PUD ulcer, hiatal hernia, EBV (positive IgG antibody in past labwork), dysarthria, and chronic inflammatory demyelinating polyneuropathy Past surgical history: C section, right hip replaced, right shoulder surgery Allergies: NKDA Social history: denies ETOH, tobacco use, and illicit drug use Family history: non-contributory Medications: please see MAR Physical Examination: - Constitutional Appears: Non-toxic, No Acute Distress - Eye Exam Eye Exam: EOMI - ENT Exam ENT Exam: Mucous Membranes Moist, white lesions on lingula - Respiratory Exam Respiratory Exam: Clear to Auscultation Bilateral, NORMAL BREATHING PATTERN - Cardiovascular Exam Cardiovascular Exam: +S1, +S2 - GI/Abdominal Exam GI & Abdominal Exam: Soft, non-tender. absent: Distended, Firm, Guarding, Rebound, Rigid - Extremities Exam Extremities exam: Negative for: pedal edema, tenderness - Neurological Exam Neurological exam: Alert, Oriented x3, tongue fasciculation - Psychiatric Exam Psychiatric exam: Normal Affect, Normal Mood - Skin Skin Exam: Dry, Intact, Normal Color, Warm Assessment and Plan: Patient is a 67 year old female with a PMHx of PUD ulcer, hiatal hernia, gastritis, EBV (positive IgG antibody in past labwork), dysarthria, and chronic inflammatory demyelinating polyneuropathy who was admitted for evaluation and treatment for increased progressive generalized weakness. Oropharyngeal dysphagia Dysarthria Generalized weakness Oropharyngeal candidiasis Chronic inflammatory demyelinating polyneuropathy Hx of PUD ulcer Hx of Hiatal hernia Hx of Gastritis Imaging Reviewed 09/28/2018 CT Chest, Abdomen and Pelvis with intravenous-There is mural thickening in the sigmoid colon which may be due to diverticular disease or localized colitis. There is mild constipation with fecal impaction. - continue dysphagia/modified consistency diet- must assist with feedings - speech/swallow evaluation - calorie count - continue fluconazole - aspiration precautions - will consider PEG pending calorie count and pulm work up Patient case discussed with and plan approved by attending physician, Dr. Rust. Past Patient History - Infectious Disease Hx of Infectious Diseases: None - Tetanus Immunizations Tetanus Immunization: Unknown - Past Social History Smoking Status: Never Smoked - CARDIAC Hx Cardiac Disorders: No - PULMONARY Hx Respiratory Disorders: No - NEUROLOGICAL Hx Neurological Disorder: Yes (frequent falls recent) Hx Dizziness: Yes Other/Comment: weakness of unknown cause (positive IgG antibody for EBV), dx july 2018. speech very slow and has problem enunciating words, pt thinks her voice sounds different since may 2018 - HEENT Hx HEENT Problems: Yes - RENAL Hx Chronic Kidney Disease: No - ENDOCRINE/METABOLIC Hx Endocrine Disorders: No - HEMATOLOGICAL/ONCOLOGICAL Hx Blood Disorders: Yes Other/Comment: JUANIS BARDALES - INTEGUMENTARY Hx Dermatological Problems: No - MUSCULOSKELETAL/RHEUMATOLOGICAL Hx Arthritis: Yes - GASTROINTESTINAL Hx Gastrointestinal Disorders: Yes (ulcer PUD,HIATAL HERNIA,GASTRITIS) Other/Comment: weight loss, poor appetite - GENITOURINARY/GYNECOLOGICAL Hx Genitourinary Disorders: No - PSYCHIATRIC Hx Substance Use: No - SURGICAL HISTORY Hx Surgeries: Yes Other/Comment: R hip surgery fx from fall. R elbow surgery. R shoulder surgery rotator cuff - ANESTHESIA Hx Anesthesia: Yes Hx Anesthesia Reactions: No Hx Malignant Hyperthermia: No Meds Allergies/Adverse Reactions: Allergies Allergy/AdvReac Type Severity Reaction Status Date / Time No Known Allergies Allergy Verified 09/21/18 13:48 - Medications Medications: Current Medications Acetaminophen (Tylenol 325mg Tab) 650 mg PO Q6H PRN PRN Reason: Pain, moderate (4-7) Last Admin: 09/26/18 00:54 Dose: 650 mg Clotrimazole (Mycelex Elysia) 10 mg MT 5XD [facility] Last Admin: 09/28/18 11:06 Dose: Not Given Fluconazole (Diflucan) 100 mg PO DAILY [facility]; Protocol Last Admin: 09/28/18 11:03 Dose: 100 mg Sodium Chloride (Sodium Chloride 0.9%) 1,000 mls @ 50 mls/hr IV .Q20H [facility] Last Admin: 09/27/18 12:14 Dose: 50 mls/hr Polyethylene Glycol (Miralax) 17 gm PO DAILY [facility] Last Admin: 09/28/18 11:06 Dose: Not Given Results - Vital Signs Recent Vital Signs: Last Vital Signs Temp 97.9 F 09/28/18 07:54 Pulse 60 09/28/18 07:54 Resp 18 09/28/18 07:54 BP 126/82 09/28/18 07:54 Pulse Ox 95 09/28/18 07:54 - Labs Result Diagrams: 09/26/18 06:00 09/26/18 06:00 Labs: Laboratory Results - last 24 hr 09/25/18 09/25/18 07:30 07:30 Ceruloplasmin 30 Methylmalonic Acid 116 <Joanne Rust V - Last Filed: 09/28/18 20:16> Meds - Medications Medications: Current Medications Acetaminophen (Tylenol 325mg Tab) 650 mg PO Q6H PRN PRN Reason: Pain, moderate (4-7) Last Admin: 09/26/18 00:54 Dose: 650 mg Albuterol/Ipratropium (Duoneb 3 Mg/0.5 Mg (3 Ml) Ud) 3 ml IH [id number] PRN PRN Reason: Shortness of Breath Clotrimazole (Mycelex Elysia) 10 mg MT 5XD [facility] Last Admin: 09/28/18 18:11 Dose: Not Given Fluconazole (Diflucan) 100 mg PO DAILY [facility]; Protocol Last Admin: 09/28/18 11:03 Dose: 100 mg Sodium Chloride (Sodium Chloride 0.9%) 1,000 mls @ 50 mls/hr IV .Q20H [facility] Last Admin: 09/27/18 12:14 Dose: 50 mls/hr Polyethylene Glycol (Miralax) 17 gm PO DAILY [facility] Last Admin: 09/28/18 11:06 Dose: Not Given Results - Vital Signs Recent Vital Signs: Last Vital Signs Temp 98.4 F 09/28/18 16:50 Pulse 87 09/28/18 16:50 Resp 19 09/28/18 16:50 BP 126/78 09/28/18 16:50 Pulse Ox 95 09/28/18 16:50 - Labs Result Diagrams: 09/26/18 06:00 09/26/18 06:00 Labs: Laboratory Results - last 24 hr 09/25/18 09/25/18 09/25/18 07:30 07:30 14:50 Ceruloplasmin 30 Methylmalonic Acid 116 CSF IgG CSF Albumin Index HSV Source Description Csf HSV I DNA PCR Not detected HSV II DNA PCR Not detected 09/25/18 14:50 Ceruloplasmin Methylmalonic Acid CSF IgG 1.3 CSF Albumin Index 11.3 HSV Source Description HSV I DNA PCR HSV II DNA PCR Attending/Attestation - Attestation I have personally seen and examined this patient.: Yes I have fully participated in the care of the patient.: Yes I have reviewed all pertinent clinical information: Yes Notes (Text): This is an addendum to the GI consultation report dictated by the resident. The patient was seen and evaluated earlier. This patient has a neurogenic dysphagia swallowing evaluation noted. Would recommend diet only with assistance It is reasonable to monitor the calorie count before proceeding with the feeding tube placement. Patient need may need a pulmonary evaluation pripr to any anesthetic administration in view of this neurological status. Consider pulmonary function tests Thank you Dr. Rose for allowing us to participate in the care of the patient. We will continue to closely follow-up her care and suggest further management based on the clinical course 09/28/18 20:13
--- NOTE | 2018-09-28 12:33 | CP.PCM.PCO ---
Additional Comments - Additional Comments Additional Comments: Pt. w. newly dx ALS, as per Neuro,Dr. Swann. Pt. kimber wants to kill herself, is very depressed. ON PE: Noted to have RR easy and unlabored, still with dystonia, falliculations noted to tongue and upper thighs b/l. Plan: 1. ALS- Modified barium swallow pending, further recs per Neuro. Pulm consult pending, GI consult pending, for rec of need for GTube with new dx of ALS. PFTs pending. 2. Depression- Acute onset after informed of newly dx ALS Nyla consulted, 1:1 ordered. cont recs per Neuro.
[2018-09-28] MEDS ORDERED: Albuterol-Ipratrop 3 mg / 0.5 (3 ml) UD IH PRN (13:33)
[2018-09-28] MEDS ORDERED: Barium Sulfate for Susp 96% w/w 176g Bottle PR ONE (14:39)
[2018-09-28 15:13] LABS: SPECIMEN SOURCE CSF
--- NOTE | 2018-09-28 15:59 | PN ---
DATE: 09/28/2018 CHIEF COMPLAINT: Fall, progressive weakness, dysphonia. SUBJECTIVE: The patient was seen and examined at the bedside. Continues to have worsening dysphonia, therefore she has to write in order to communicate. Fasciculations are seen on her tongue bilaterally as well as her proximal thigh muscles. I discussed with the patient that possibly we need to get swallow to test her swallowing capabilities and get a pulmonary function test to assess respiratory status. She has acute onset of depression with newly diagnosed ALS. Psych will be consulted. PAST MEDICAL HISTORY: History of EBV, peptic ulcer disease. REVIEW OF SYSTEMS: A 14-point review of systems negative except in the HPI. SOCIAL HISTORY: No illicit drug use, smoking or EtOH abuse. FAMILY HISTORY: Noncontributory. MEDICATIONS: Reviewed by nurse's reconciliation sheet. LABORATORY DATA: No new labs done today. PHYSICAL EXAMINATION: GENERAL: The patient is sitting up in bed, no acute distress. VITAL SIGNS: Temperature 97.9, pulse 86, blood pressure 126/80, respiratory rate of 18, oxygen saturation 95% on room air. HEENT: Atraumatic, normocephalic. PERRLA. Extraocular muscles are intact. NECK: Supple. No JVD. No adenopathy. LUNGS: Clear to auscultation. No adventitious sounds. HEART: S1 and S2. Normal rate and rhythm. No murmurs, rubs, or gallops. ABDOMEN: Soft, nontender, nondistended. Bowel sounds present. EXTREMITIES: No clubbing, no cyanosis. Peripheral pulses 2+ felt bilaterally. NEUROLOGIC: The patient is alert and oriented to person and place. Has low attention span and slow thought process. Depressed affect. Recall time 05/21. Speech is hypophonic and dysphonic. The patient has some slow orolingual movements. She has bilateral fasciculations over her tongue. Motor examination, she is having proximal lower extremity weakness in terms of a left footdrop as well as fasciculations bilateral thighs intermittently. She also had bilateral lower extremity muscles, proximal and distal as well. She is able to raise both legs but most likely 4+/5 bilaterally. Proximal muscle weakness in the thighs. Toes are downgoing. DTRs are 2+ and brisk at the knees. Coordination [id number] intact. Gait is deferred for now IMPRESSION: This is a 67-year-old woman with a history of peptic ulcer disease, comes in with a four to five month history of progressive low extremity weakness, multiple falls, generalized weakness. She also has difficulty in walking. Now presents with dysphonia. On neuro examination, she has bilateral fasciculations of the tongue as well as the bilateral thighs and additional left footdrop with severe muscle wasting in the bilateral lower extremities of her thighs. Her pattern, history and neuro examination is all consistent with motor-neuron disease, ALS-type. She has extensive neurological workup which has been negative. RECOMMENDATIONS: I will recommend at this time; 1. Modified Barium swallow to assess her swallowing capabilities. 2. Pulmonary function test with pulmonary consult, given that she has a history of motor neuron disease can affect her breathing capabilities. 3. Psychiatric evaluation with acute onset of depression, given her new diagnosis. 4. Monitor her functional vital capacity and her O2 status given her motor neuron disease. 5. Consider riluzole 50 mg p.o. b.i.d for ALS. 6. PT/OT/ET and will need a possible outpatient EMG if she makes out of this acute phase. Once again, acute rehab is recommended with pulmonary care and pulmonary toilet training. Akshat Swann MD
--- NOTE | 2018-09-28 16:20 | PN ---
DATE: 09/28/2018 SUBJECTIVE: The patient is 67 years old, seen and examined, looks very anxious. She was told yesterday that her diagnosis is consistent with ALS. She seemed to be upset, wants to get another opinion. She wants me to talk to her son and actually, Dr. Akshat Swann want to have [id number] meeting with son tomorrow. PHYSICAL EXAMINATION: GENERAL: She is anxious. She is sitting in bed, had dysphonia, to communicate. VITAL SIGNS: She is afebrile. Pulse 60, respirations 18, and blood pressure 126/82. LUNGS: Bilateral fair airflow. No rhonchi or crackles. HEART: S1 and S2 audible. ABDOMEN: Soft and nontender. No rebound. No guarding. NEUROLOGIC: She is awake and alert, but has difficulty verbalizing. EXTREMITIES: Bilateral legs, no edema. Fasciculation noted in her tongue. LABORATORY DATA: There is no new lab available today. ASSESSMENT: 1. Progressive dysphonia, dysphasia, and dysphagia. 2. Generalized weakness. 3. Weight loss. 4. Deconditioning and difficulty walking. 5. New onset of amyotrophic lateral sclerosis. PLAN: We will discuss with the patient's son. We will get psych evaluation since the patient expressed that she is depressed about her new diagnosis. We will continue her on current medications. She is being treated for oral thrush and she is on IV fluid. We will talk to the patient's family and neurology. Todd Gates MD
--- NOTE | 2018-09-28 20:15 | CON ---
DATE: 09/28/2018 PULMONARY PROGRESS NOTE REFERRING PHYSICIAN: Todd Gates MD REASON FOR CONSULT: Newly diagnosed amyotrophic lateral sclerosis, progressive weakness and dysphonia. HISTORY OF PRESENT ILLNESS: This is a 67-year-old woman with past medical history significant for hiatal hernia, peptic ulcer disease, history of Jennifer-Hammond virus gastritis, chronic inflammatory demyelinating polyneuropathy. The patient originally came to the emergency room because of increasing weakness, difficulty walking and difficulty swallowing. The patient is newly diagnosed with ALS and has dysphonia, uses white board to communicate. PAST MEDICAL HISTORY: As per history of present illness. ALLERGIES: NO KNOWN DRUG ALLERGIES. FAMILY HISTORY: No significant cardiopulmonary disease reported. SOCIAL HISTORY: Nonsmoker. No ETOH abuse. No illicit drug use. MEDICATIONS: Reviewed. Tylenol 650 mg p.o. every 6 hours p.r.n., clotrimazole 10 mg 5 times a day, Diflucan 100 mg daily, MiraLax 17 g daily, sodium chloride 0.9% a 1000 mL at 50 mL per hour. REVIEW OF SYSTEMS: No headache, rhinitis, cough, shortness of breath, chest pain, abdominal pain, nausea, vomiting, diarrhea, leg pain or leg swelling reported. The patient does state that she has difficulty with thin liquids and sometimes it is easier with thickened liquids. Reports oral thrush. PHYSICAL EXAMINATION GENERAL: No acute distress. VITAL SIGNS: Blood pressure 126/78, pulse of 87, temperature of 98.4 and oxygen saturation of 95% on room air. HEENT: Positive oral yg. Mallampati score 4. Crowded airway. NECK: Supple. No JVD. LUNGS: Fair airflow bilaterally. CARDIOVASCULAR: S1 and S2. ABDOMEN: Soft, nontender, no distension, no organomegaly. EXTREMITIES: No bilateral lower extremity edema. NEUROLOGIC: Awake, alert and verbalize, talks in a very low tone, at times difficult to understand, communicates using white board. LABORATORY DATA: Reviewed. WBC of 4.4, RBC of 4, hemoglobin of 11.8, hematocrit of 36.1 and platelets of 255. Sodium of 140, potassium of 3.8, chloride of 107, carbon dioxide of 26, anion gap of 11, BUN of 19, creatinine of 0.6, GFR greater than 60, random glucose of 82, calcium of 9.4, bilirubin of 0.7, AST of 21, ALT of 19, alkaline phosphatase of 56, total protein of 6.2, albumin of 3.4, globulin of 2.8, albumin-globulin ratio of 1.2 and vitamin B12 greater than 1000. Cerebrospinal fluid volume 3, RBC of 4. HSV-1 DNA PCR not detected and HSV-2 DNA PCR not detected. Cerebrospinal fluid culture preliminary no growth after 3 days. Modified Barium swallow report pending. Chest, abdomen and pelvis CT showed minimal atelectasis at the right lung base. Mural thickening in the sigmoid colon. 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 Fluid in the mastoid air cells bilaterally. Head CT showed no acute intracranial abnormalities. EKG; normal sinus rhythm. IMPRESSION AND PLAN: Newly diagnosed amyotrophic lateral sclerosis, history of peptic ulcer disease, multiple falls, Jennifer-Hammond virus history. This is newly diagnosed amyotrophic lateral sclerosis, the patient is at risk to worsen pulmonary ding. We will order vital capacity to be done daily. Head of bed elevated at 45 degrees. Sleep apnea precaution. Continue speech therapy followup. The patient had modified Barium swallow done today. We will follow up the report. The patient has pulmonary function test order to be done, we will follow up the results. Avoid sedation in this patient. We will place the patient on DuoNeb p.r.n. for shortness of breath. Continue Neurology followup treatment for amyotrophic lateral sclerosis per Neurology. Continue remote telemetry monitoring on this patient. Physical therapy: The patient will benefit from physical therapy and fall precautions. Continue treatment for oral thrush as already prescribed. Continue psychiatry evaluation due to new diagnosis and expressed depression according to diagnosis. The patient seen and examined with Dr. Hubbard. Discussed assessment and plan as read above. The patient seen and examined with Ayala Lees, Nurse Practitioner. Discussed assessment and plan as described above. Thank you for this consult. We will follow with you. Ayala Lees APN Stevie Durbin MD [facility] # [id number]
[2018-09-29] MEDS: Sodium Chloride 0.9% 1,000 ML IV SCH (05:38)
--- NOTE | 2018-09-29 08:28 | RAD ---
Modified barium video swallow History of dysphagia Comments. Fluoroscopy was provided in the Radiology department. Lateral video fluoroscopy was performed of the neck as the patient swallows various consistencies of liquid and solid food combined with barium. Images were recorded and sent to the PACs system. There is no official radiologic interpretation of these exams only this documentation of providing fluoroscopy. The studies are administered and interpreted by the speech therapist Joy Gaona [phone]. Fluoro time 181.3 sec. Cumulative dose 0.346 mGy Impression: Fluoroscopy provided for evaluation of swallowing function
--- NOTE | 2018-09-29 10:07 | CP.PCM.PN ---
<BellSanty - Last Filed: 09/29/18 10:03> Subjective - Date & Time of Evaluation Date of Evaluation: 09/29/18 Time of Evaluation: 08:45 - Subjective Subjective: PGY6 GI Fellow Progress Note Patient seen and examined bedside this morning. The patient states that she is tolerating diet as ordered thus far and is witnessed eating eggs/potatoes this morning. 1:1 at bedside. 12 system ROS performed and negative except where stated Objective - Vital Signs/Intake and Output Vital Signs (last 24 hours): Temp Pulse Resp BP Pulse Ox 97.6 F 65 20 120/79 95 09/29/18 08:35 09/29/18 08:35 09/29/18 08:35 09/29/18 08:35 09/29/18 08:35 - Medications Medications: Current Medications Acetaminophen (Tylenol 325mg Tab) 650 mg PO Q6H PRN PRN Reason: Pain, moderate (4-7) Last Admin: 09/26/18 00:54 Dose: 650 mg Albuterol/Ipratropium (Duoneb 3 Mg/0.5 Mg (3 Ml) Ud) 3 ml IH [id number] PRN PRN Reason: Shortness of Breath Clotrimazole (Mycelex Elysia) 10 mg MT 5XD [facility] Last Admin: 09/29/18 05:38 Dose: 10 mg Fluconazole (Diflucan) 100 mg PO DAILY [facility]; Protocol Last Admin: 09/28/18 11:03 Dose: 100 mg Sodium Chloride (Sodium Chloride 0.9%) 1,000 mls @ 50 mls/hr IV .Q20H [facility] Last Admin: 09/29/18 05:38 Dose: 50 mls/hr Polyethylene Glycol (Miralax) 17 gm PO DAILY [facility] Last Admin: 09/28/18 11:06 Dose: Not Given - Labs Labs: 09/26/18 06:00 09/26/18 06:00 PT 11.8 SECONDS (9.4-12.5) 09/25/18 11:10 INR 1.04 09/25/18 11:10 APTT 31.6 Seconds (26.9-38.3) 09/25/18 11:10 - Constitutional Appears: No Acute Distress, Other (dysphonia/dysarthria noted) - Eye Exam Eye Exam: EOMI, PERRL - ENT Exam ENT Exam: Mucous Membranes Moist - Respiratory Exam Respiratory Exam: Decreased Breath Sounds. absent: Rales, Rhonchi, Wheezes - Cardiovascular Exam Cardiovascular Exam: RRR, +S1, +S2 - GI/Abdominal Exam GI & Abdominal Exam: Soft, Normal Bowel Sounds. absent: Distended, Firm, Guarding, Rigid, Tenderness, Organomegaly - Extremities Exam Extremities Exam: Normal Inspection. absent: Pedal Edema - Neurological Exam Neurological Exam: Alert, Awake, Oriented x3 - Psychiatric Exam Psychiatric exam: Normal Affect, Normal Mood - Skin Skin Exam: Dry, Warm Assessment and Plan - Assessment and Plan (Free Text) Assessment: Patient is a 67yo female with PMHx significant for PUD, dysarthria and chronic i nflammatory demyelinating polyneuropathy who presented with worsening generalized weakness -Dysphagia -Oropharyngeal thrush -Dysphonia/dysarthria/muscle weakness - concern for ALS Plan: -We have been asked to evaluate the patient for PEG placement - at this time patient does not wish to have PEG tube placed -Recommend ongoing calorie count with diet per ELECTRICAL SIGN WIRER HELPER; ELECTRICAL SIGN WIRER HELPER carmen and MBS noted -Ongoing treatment for oropharyngeal thrush - the presence of thrush can worsen dysphagia -If the patient is definitely diagnosed with ALS, it is likely she will ultimately require tube feeding however the patient must be agreeable to placement, which presently, she is not -Aspiration precautions and assistance/observation with meals -Pulmonary evaluation ongoing - patient would require clearance from pulm standpoint for any endoscopic procedure with anesthesia <Joanne Rust V - Last Filed: 09/30/18 00:38> Objective - Vital Signs/Intake and Output Vital Signs (last 24 hours): Temp Pulse Resp BP Pulse Ox 99.7 F H 79 20 150/63 98 09/29/18 17:24 09/29/18 17:24 09/29/18 17:24 09/29/18 17:24 09/29/18 17:24 - Medications Medications: Current Medications Acetaminophen (Tylenol 325mg Tab) 650 mg PO Q6H PRN PRN Reason: Pain, moderate (4-7) Last Admin: 09/29/18 23:17 Dose: 650 mg Albuterol/Ipratropium (Duoneb 3 Mg/0.5 Mg (3 Ml) Ud) 3 ml IH [id number] PRN PRN Reason: Shortness of Breath Clotrimazole (Mycelex Elysia) 10 mg MT 5XD [facility] Last Admin: 09/29/18 21:18 Dose: 10 mg Fluconazole (Diflucan) 100 mg PO DAILY [facility]; Protocol Last Admin: 09/29/18 10:57 Dose: 100 mg Sodium Chloride (Sodium Chloride 0.9%) 1,000 mls @ 50 mls/hr IV .Q20H [facility] Last Admin: 09/29/18 05:38 Dose: 50 mls/hr Polyethylene Glycol (Miralax) 17 gm PO DAILY [facility] Last Admin: 09/29/18 10:57 Dose: 17 gm - Labs Labs: 09/26/18 06:00 09/26/18 06:00 PT 11.8 SECONDS (9.4-12.5) 09/25/18 11:10 INR 1.04 09/25/18 11:10 APTT 31.6 Seconds (26.9-38.3) 09/25/18 11:10 Attending/Attestation - Attestation I have personally seen and examined this patient.: Yes I have fully participated in the care of the patient.: Yes I have reviewed all pertinent clinical information, including history, physical exam and plan: Yes Notes (Text): This patient was seen and evaluated earlier today. Calorie count in progress. We discussed with the Dr. Gates and also with the make up operator. Patient is reluctant to have PEG tube now 09/30/18 00:37
[2018-09-29] MEDS: POLYETHYLENE GLYCOL 3350 17 GM/Dose PACKET PO SCH (10:57)
--- NOTE | 2018-09-29 12:26 | CP.PCM.PCO ---
Additional Comments - Additional Comments Additional Comments: Pt. pending PFTs, for asssessment of pulmonary function in setting of Newly DX ALS. Post MOdifield Barium Swallow, with normal results per GI. Resp status remains stable, still w.Dysphonia, tolerated breakfast well,eating during assessment.. Currently refusing PEG tube insertion, Calorie count in process, Noted to have muscle twitching to leg/thighs b/l, neuro suggest EMG as outpatient and Riluzole 50 mg bid Pt. asking about muscle bx for definitive dx which is not currently recommended by neuro, discussed with patient. Poss. surgical consult for muscle bx at patient's request, with patient cleared for Acute rehab per neuro and PMd. Will continue to monitor clinical status and follow closely. Plan for acute rehab after possible muscle bx if scheduled, if can be done under local sedation.
--- NOTE | 2018-09-29 12:44 | CON ---
DATE: 09/29/2018 CONSULTATION NOTE HISTORY OF PRESENT ILLNESS: The patient is a 67-year-old female with multiple medical issues including pelvic ulcer disease, hiatal hernia, Jennifer-Hammond virus, dysarthria. The patient was admitted for generalized weakness. The patient was newly diagnosed with ALS. In the context of the new diagnosis, the patient verbalizes that she wants to harm herself and presented to be very depressed. That is why one-to-one was started and a psych consult was called. The patient was seen today. The patient observed eating with good appetite. The patient did not present to be depressed, but the patient requested to finish her meal before she will talk to this engineering technical writer. Collaterals were obtained from one-to-one sitter. As per one-to-one sitter observation, the patient did not express any thoughts of harming herself or others. The patient was in good mood. The patient did not verbalize any thoughts of harming herself or others. VITAL SIGNS: Vital signs were reviewed. Temperature 97.6, pulse is 65, blood pressure 120/79, respirations , and oxygen saturation is 95. MEDICATIONS: Medications were reviewed. The patient is on Tylenol, DuoNeb, clotrimazole, Ditropan, MiraLax, and sodium chloride. LABORATORY DATA: Labs were reviewed. Most recent was from 09/26. Immunology reviewed. MENTAL STATUS EXAMINATION: The patient presented to be alert and oriented, pleasant, cooperative, has dysarthria, and difficulty to express herself, but full mental status examination will be done later on if this engineering technical writer had time to come back and talk to the patient. IMPRESSION: This engineering technical writer would like to rule out acute stress reaction and rule out . PLAN: In order to give her any advice, this engineering technical writer needs to have full examination, but the patient refused to talk. The patient wanted to finish her meal. If this engineering technical writer will have time to come back today, we will definitely do so, but so far, the patient did not express any thoughts of harming herself or others. Observed eating, in good appetite; of course, family needs to be involved. Oil Rigger needs to be involved. Physical therapy needs to be involved. The patient will follow up with Neurology as well as Primary Care Team. Should you have any questions, give me a call back. Thank you very much for letting me participate in the care of your patient. Loni Ye MD
--- NOTE | 2018-09-29 13:54 | PN ---
DATE: 09/29/2018 PULMONARY PROGRESS NOTE REFERRING PHYSICIAN: Todd Gates MD SUBJECTIVE: The patient is seen sitting up in bed. No acute distress. Presently with one-to-one sitter as the patient noted with depression at diagnosis of new onset ALS. The patient also reports feeling frustrated at diagnosis asking about muscle biopsy. Vital capacity was done yesterday by respiratory therapist and best attempt noted 1.88 liters. Pulmonary function test pending to be done. The patient had modified barium swallow done yesterday and diet is currently fine chopped with thin liquids. No headache, rhinitis, cough, shortness of breath, chest pain, abdominal pain, nausea, vomiting, diarrhea, leg pain or leg swelling reported by the patient. OBJECTIVE: VITAL SIGNS: Blood pressure 120/79, pulse 65, temperature 97.6 and oxygen saturation 95% on room air. GENERAL: No acute distress. HEENT: Mallampati score of 4. Crowded airway. Oral yg. NECK: Supple. No JVD. LUNGS: Fair airflow bilaterally. CARDIOVASCULAR: S1 and S2. ABDOMEN: Soft and nontender. No distention. No organomegaly. EXTREMITIES: No bilateral lower extremity edema. NEUROLOGIC: Awake, alert and verbalizes in very low tone or dystonia still present, communicating using white board. MEDICATIONS: Reviewed. Tylenol 650 every 6 hours p.r.n., DuoNeb 3 mL inhalation every 6 hours p.r.n., clotrimazole 10 mg 5 times a day, Diflucan 100 mg daily, MiraLax 17 g daily and sodium chloride 0.9% 1000 mL at 50 mL per hour. LABORATORY DATA: Reviewed. No new labs. IMPRESSION AND PLAN: Newly diagnosed amyotrophic lateral sclerosis, history of peptic ulcer disease, multiple falls and Jennifer-Hammond virus history. Gastrointestinal notes reviewed. The patient refusing percutaneous endoscopic gastrostomy tube placement at this time. Calorie count in place. The patient with oral pharyngeal thrush. Pulmonary function test pending to be done. We will followup when available. Continue vital capacity daily as we need to compare vital capacity on daily basis. Continue p.r.n. DuoNeb for shortness of breath. We will recommend avoiding sedation on this patient. Continue Neurology followup. Spoke with the patient in depth regarding her frustrations with diagnosis. Case discussed with primary and attending physician. Head of bed elevated at 45 degrees. Aspiration precaution. Sleep apnea precaution. The patient seen and examined with Dr. Hubbard. Discussed assessment and plan as read above. The patient seen and examined with Ayala Lees, Nurse Practitioner. Discussed assessment and plan as described above. Thank you for this consult and we will follow with you. Ayala Lees APN Clary Hubbard MD NGA
--- NOTE | 2018-09-29 16:00 | PN ---
DATE: 09/29/2018 SUBJECTIVE: The patient is 67 years old, seen and examined, fully awake and alert, sitting in chair. Communicates by writing, because she has dysphonia and dysarthria. She is adamant that she wants to have muscle biopsy done, spoke to neurologist. There is no indication for muscle biopsy; however, he will decide after EMG is done in his office. The patient is ready to go to subacute rehab, but she is adamant and does not want to leave until she has biopsy done. She is eating and tolerating. PHYSICAL EXAMINATION: VITAL SIGNS: She is afebrile. Pulse 65, respirations 20, and blood pressure 120/79. LUNGS: Bilateral fair airflow. No rhonchi or crackles. HEART: S1 and S2, audible. ABDOMEN: Soft and nontender. No rebound. No guarding. NEUROLOGIC: The patient is awake and alert, able to communicate. LABORATORY DATA: CSF exam is unremarkable. Herpes simplex DNA PCR not detected. MRI is unremarkable. Awaiting for PFTs. ASSESSMENT: Dysphonia, dysarthria consistent with amyotropic lateral sclerosis. The patient seemed to be upset, initially , now depressed. Did not express of feeling to kill herself with me; however, Psych was called. PLAN: Although, it is not medically necessary, but I will get surgeon involved to talk to her if he is willing to do under local anesthesia; however, the Neuro is not in favor of doing biopsy at this point. She should go to subacute rehab when will be followed as outpatient for EMG and biopsy if needed. We will try to get riluzole 50 mg twice a day as outpatient, once arrangement is made, she will be transferred to subacute rehab unless the rehab is willing to cover her for this medication. Todd Gates MD
[2018-09-29 16:16] LABS: IGG INDEX CSF 0.43 (<0.66); SYNTHESIS RATE IGG CSF -3.8 mg/24 h (-9.9-3.3)
--- NOTE | 2018-09-29 18:06 | CP.PCM.CON ---
<Km Orellana - Last Filed: 09/29/18 17:49> History of Present Illness - History of Present Illness History of Present Illness: General Surgery Consult Re: Muscle biopsy HPI: 67F initially presented to ED for weaknessand difficulty swallowing. She uses a whiteboard to communicate due to her dysphonia/dysarthria. She is requesting to have a muscle biopsy done now, despite there not being an indication at this time. Neurology would like to get an outpatient EMG prior to any need for biopsy (if at all). Currently, only complains of weakness. Denies abdominal pain, nausea, vomiting, diarrhea, constipation, melena, hematochezia, fevers, chills, chest pain, sob, and urinary symptoms. Pt has a place for [facility] at [place]. PMH: ALS, Hiatal hernia, peptic ulcer, EBV gastritis, chronic inflammatory demyelinating polyneuopathy PSH: R Hip, R shoulder, SH: Denies tobacco, EtOH, and drug use FH: Non contributory Meds: See MAR All: NKDA Review of Systems - Review of Systems All systems: reviewed and no additional remarkable complaints except (as Per HPI) Past Patient History - Infectious Disease Hx of Infectious Diseases: None - Tetanus Immunizations Tetanus Immunization: Unknown - Past Social History Smoking Status: Never Smoked - CARDIAC Hx Cardiac Disorders: No - PULMONARY Hx Respiratory Disorders: No - NEUROLOGICAL Hx Neurological Disorder: Yes (frequent falls recent) Hx Dizziness: Yes Other/Comment: weakness of unknown cause (positive IgG antibody for EBV), dx july 2018. speech very slow and has problem enunciating words, pt thinks her voice sounds different since may 2018 - HEENT Hx HEENT Problems: Yes - RENAL Hx Chronic Kidney Disease: No - ENDOCRINE/METABOLIC Hx Endocrine Disorders: No - HEMATOLOGICAL/ONCOLOGICAL Hx Blood Disorders: Yes Other/Comment: JUANIS BARDALES - INTEGUMENTARY Hx Dermatological Problems: No - MUSCULOSKELETAL/RHEUMATOLOGICAL Hx Arthritis: Yes - GASTROINTESTINAL Hx Gastrointestinal Disorders: Yes (ulcer PUD,HIATAL HERNIA,GASTRITIS) Other/Comment: weight loss, poor appetite - GENITOURINARY/GYNECOLOGICAL Hx Genitourinary Disorders: No - PSYCHIATRIC Hx Substance Use: No - SURGICAL HISTORY Hx Surgeries: Yes Other/Comment: R hip surgery fx from fall. R elbow surgery. R shoulder surgery rotator cuff - ANESTHESIA Hx Anesthesia: Yes Hx Anesthesia Reactions: No Hx Malignant Hyperthermia: No Meds Allergies/Adverse Reactions: Allergies Allergy/AdvReac Type Severity Reaction Status Date / Time No Known Allergies Allergy Verified 09/21/18 13:48 - Medications Medications: Current Medications Acetaminophen (Tylenol 325mg Tab) 650 mg PO Q6H PRN PRN Reason: Pain, moderate (4-7) Last Admin: 09/29/18 12:08 Dose: 650 mg Albuterol/Ipratropium (Duoneb 3 Mg/0.5 Mg (3 Ml) Ud) 3 ml IH [id number] PRN PRN Reason: Shortness of Breath Clotrimazole (Mycelex Elysia) 10 mg MT 5XD [facility] Last Admin: 09/29/18 14:26 Dose: 10 mg Fluconazole (Diflucan) 100 mg PO DAILY [facility]; Protocol Last Admin: 09/29/18 10:57 Dose: 100 mg Sodium Chloride (Sodium Chloride 0.9%) 1,000 mls @ 50 mls/hr IV .Q20H [facility] Last Admin: 09/29/18 05:38 Dose: 50 mls/hr Polyethylene Glycol (Miralax) 17 gm PO DAILY [facility] Last Admin: 09/29/18 10:57 Dose: 17 gm Physical Exam - Constitutional Appears: Non-toxic, No Acute Distress, Chronically Ill - Head Exam Head Exam: ATRAUMATIC, NORMOCEPHALIC - Eye Exam Eye Exam: EOMI, PERRL. absent: Scleral icterus - ENT Exam ENT Exam: Mucous Membranes Moist Additional comments: trachea midline - Neck Exam Neck exam: Positive for: Full Rom. Negative for: Lymphadenopathy - Respiratory Exam Respiratory Exam: NORMAL BREATHING PATTERN. absent: Respiratory Distress - Cardiovascular Exam Cardiovascular Exam: RRR. absent: Bradycardia, Tachycardia - GI/Abdominal Exam GI & Abdominal Exam: Soft. absent: Distended, Tenderness - Rectal Exam Rectal Exam: Deferred - Extremities Exam Extremities exam: Positive for: normal capillary refill. Negative for: calf tenderness, pedal edema - Back Exam Back exam: absent: CVA tenderness (L), CVA tenderness (R) - Neurological Exam Neurological exam: Alert, Oriented x3 Additional comments: dysphonia, dysarthria - Skin Skin Exam: Dry, Warm Results - Vital Signs Recent Vital Signs: Last Vital Signs Temp 99.7 F H 09/29/18 17:24 Pulse 79 09/29/18 17:24 Resp 20 09/29/18 17:24 BP 150/63 09/29/18 17:24 Pulse Ox 98 09/29/18 17:24 - Labs Result Diagrams: 09/26/18 06:00 09/26/18 06:00 Labs: Laboratory Results - last 24 hr 09/25/18 09/25/18 14:50 14:50 Albumin (Send Out) 3.4 CSF IgG Index 0.43 CSF IgG Synthesis Rate -3.8 IgG 905 [place] RNA (RT-PCR) Not detected - Imaging and Cardiology Imaging Status: Image reviewed by me, Report reviewed by me Assessment & Plan - Assessment and Plan (Free Text) Assessment: 67F with PMHx of PUD, hiatal hernia, gastritis, EBV (positive IgG antibody in past labwork), dysarthria, and chronic inflammatory demyelinating polyneuropathy who was admitted for evaluation and treatment for increased progressive generalized weakness. Plan: No immediate plan for muscle biopsy Follow up after rehab with Neurology for EMG and, if needed, muscle biopsy under local anesthesia can be planned afterwards. D/W Dr. Kwan Orellana PGY4 <Carlos Bowens - Last Filed: 09/29/18 19:05> Meds - Medications Medications: Current Medications Acetaminophen (Tylenol 325mg Tab) 650 mg PO Q6H PRN PRN Reason: Pain, moderate (4-7) Last Admin: 09/29/18 12:08 Dose: 650 mg Albuterol/Ipratropium (Duoneb 3 Mg/0.5 Mg (3 Ml) Ud) 3 ml IH [id number] PRN PRN Reason: Shortness of Breath Clotrimazole (Mycelex Elysia) 10 mg MT 5XD [facility] Last Admin: 09/29/18 17:49 Dose: 10 mg Fluconazole (Diflucan) 100 mg PO DAILY [facility]; Protocol Last Admin: 09/29/18 10:57 Dose: 100 mg Sodium Chloride (Sodium Chloride 0.9%) 1,000 mls @ 50 mls/hr IV .Q20H [facility] Last Admin: 09/29/18 05:38 Dose: 50 mls/hr Polyethylene Glycol (Miralax) 17 gm PO DAILY [facility] Last Admin: 09/29/18 10:57 Dose: 17 gm Results - Vital Signs Recent Vital Signs: Last Vital Signs Temp 99.7 F H 09/29/18 17:24 Pulse 79 09/29/18 17:24 Resp 20 09/29/18 17:24 BP 150/63 09/29/18 17:24 Pulse Ox 98 09/29/18 17:24 - Labs Result Diagrams: 09/26/18 06:00 09/26/18 06:00 Labs: Laboratory Results - last 24 hr 09/25/18 09/25/18 09/25/18 07:30 14:50 14:50 Albumin (Send Out) 3.4 CSF IgG Index 0.43 CSF IgG Synthesis Rate -3.8 IgG 905 [place] RNA (RT-PCR) Not detected HSV Source Description Plasma HSV I DNA PCR Not detected HSV II DNA PCR Not detected Assessment & Plan - Assessment and Plan (Free Text) Plan: Dx ALS/Depression/Unable totalk-writes thoughts [facility] Hold off on muscle biopsy now(No indication for urgncy) [place] [facility]-med Rx if possible then biopsy post rehab This consult done under my direct supervision Carl Bowens MD FACS
[2018-09-29 18:16] LABS: SPECIMEN SOURCE Plasma
--- NOTE | 2018-09-30 06:23 | CP.PCM.PCO ---
Physician Communication Note - Physician Communication Note Physician Communication Note: Muscle biopsy not recommended-Rehab now adviseable
[2018-09-30] MEDS: POLYETHYLENE GLYCOL 3350 17 GM/Dose PACKET PO SCH (11:11)
--- NOTE | 2018-09-30 11:21 | CP.PCM.PCO ---
Physician Communication Note - Physician Communication Note Physician Communication Note: 1:1 Dc d at 11:20,pending CSpine MRI,cleared for dc to [facility]
--- NOTE | 2018-09-30 11:21 | CP.PCM.PN ---
<Cirilo Sheppard - Last Filed: 09/30/18 11:12> Subjective - Date & Time of Evaluation Date of Evaluation: 09/30/18 Time of Evaluation: 10:20 - Subjective Subjective: Cirilo Sheppard- Internal Medicine Resident-Progress Note on Behalf on Dr. Rust Subjective: Patient seen and examined at bedside. No acute events overnight. Patient is able to tolerate dysphagia diet without pain, coughing, drooling, choking, and difficulty. Noted to eat breakfast without issue. Denies abdominal pain, nausea, vomiting, diarrhea, constipation, bright red blood per rectum, black stools, and changes in stool caliber. 12 point ROS negative except as indicated in the HPI Physical Examination: - Constitutional Appears: Non-toxic, No Acute Distress - Eye Exam Eye Exam: EOMI - ENT Exam ENT Exam: Mucous Membranes Moist, white lesions on lingula - Respiratory Exam Respiratory Exam: Clear to Auscultation Bilateral, NORMAL BREATHING PATTERN - Cardiovascular Exam Cardiovascular Exam: +S1, +S2 - GI/Abdominal Exam GI & Abdominal Exam: Soft, Normal Bowel Sounds. absent: Distended, Firm, Guarding, Rigid, Tenderness, Organomegaly - Extremities Exam Extremities exam: Negative for: pedal edema, tenderness - Neurological Exam Neurological exam: Alert, Oriented x3, tongue fasciculations - Psychiatric Exam Psychiatric exam: Normal Affect, Normal Mood - Skin Skin Exam: Dry, Intact, Normal Color, Warm Assessment and Plan: Patient is a 67 year old female with a PMHx of PUD ulcer, hiatal hernia, gastritis, EBV (positive IgG antibody in past labwork), dysarthria, and chronic inflammatory demyelinating polyneuropathy who was admitted for evaluation and treatment for increased progressive generalized weakness. Oropharyngeal dysphagia Dysarthria/ Generalized weakness- concern for ALS Oropharyngeal candidiasis Chronic inflammatory demyelinating polyneuropathy Hx of PUD ulcer Hx of Hiatal hernia Hx of Gastritis Imaging Reviewed 09/28/2018 CT Chest, Abdomen and Pelvis with intravenous-There is mural thickening in the sigmoid colon which may be due to diverticular disease or localized colitis. There is mild constipation with fecal impaction. - continue dysphagia/modified consistency diet- must assist with feedings - patient does not require PEG tube at this time as she is tolerating PO intake - recommend pulm work up for clearance if/when PEG tube is required - continue to monitor calorie count - continue fluconazole - aspiration precautions Patient case discussed with and plan approved by attending physician, Dr. Rust. Objective - Vital Signs/Intake and Output Vital Signs (last 24 hours): Temp Pulse Resp BP Pulse Ox 97.9 F 60 18 114/61 98 09/30/18 08:20 09/30/18 08:20 09/30/18 08:20 09/30/18 08:20 09/30/18 08:20 - Medications Medications: Current Medications Acetaminophen (Tylenol 325mg Tab) 650 mg PO Q6H PRN PRN Reason: Pain, moderate (4-7) Last Admin: 09/29/18 23:17 Dose: 650 mg Albuterol/Ipratropium (Duoneb 3 Mg/0.5 Mg (3 Ml) Ud) 3 ml IH [id number] PRN PRN Reason: Shortness of Breath Clotrimazole (Mycelex Elysia) 10 mg MT 5XD [facility] Last Admin: 09/30/18 11:12 Dose: 10 mg Fluconazole (Diflucan) 100 mg PO DAILY [facility]; Protocol Last Admin: 09/30/18 11:11 Dose: 100 mg Sodium Chloride (Sodium Chloride 0.9%) 1,000 mls @ 50 mls/hr IV .Q20H [facility] Last Admin: 09/29/18 05:38 Dose: 50 mls/hr Polyethylene Glycol (Miralax) 17 gm PO DAILY [facility] Last Admin: 09/30/18 11:11 Dose: 17 gm - Labs Labs: 09/26/18 06:00 09/26/18 06:00 PT 11.8 SECONDS (9.4-12.5) 09/25/18 11:10 INR 1.04 09/25/18 11:10 APTT 31.6 Seconds (26.9-38.3) 09/25/18 11:10 <Joanne Rust V - Last Filed: 09/30/18 20:24> Objective - Vital Signs/Intake and Output Vital Signs (last 24 hours): Temp Pulse Resp BP Pulse Ox 98.7 F 98 H 20 108/64 96 09/30/18 16:16 09/30/18 18:00 09/30/18 16:16 09/30/18 16:16 09/30/18 16:16 Intake and Output: 09/30/18 10/01/18 18:59 06:59 Intake Total 840 Output Total 600 Balance 240 - Medications Medications: Current Medications Acetaminophen (Tylenol 325mg Tab) 650 mg PO Q6H PRN PRN Reason: Pain, moderate (4-7) Last Admin: 09/29/18 23:17 Dose: 650 mg Albuterol/Ipratropium (Duoneb 3 Mg/0.5 Mg (3 Ml) Ud) 3 ml IH [id number] PRN PRN Reason: Shortness of Breath Clotrimazole (Mycelex Elysia) 10 mg MT 5XD [facility] Last Admin: 09/30/18 17:06 Dose: Not Given Fluconazole (Diflucan) 100 mg PO DAILY [facility]; Protocol Last Admin: 09/30/18 11:11 Dose: 100 mg Sodium Chloride (Sodium Chloride 0.9%) 1,000 mls @ 50 mls/hr IV .Q20H [facility] Last Admin: 09/29/18 05:38 Dose: 50 mls/hr Polyethylene Glycol (Miralax) 17 gm PO DAILY [facility] Last Admin: 09/30/18 11:11 Dose: 17 gm - Labs Labs: 09/26/18 06:00 09/26/18 06:00 PT 11.8 SECONDS (9.4-12.5) 09/25/18 11:10 INR 1.04 09/25/18 11:10 APTT 31.6 Seconds (26.9-38.3) 09/25/18 11:10 Attending/Attestation - Attestation I have personally seen and examined this patient.: Yes I have fully participated in the care of the patient.: Yes I have reviewed all pertinent clinical information, including history, physical exam and plan: Yes Notes (Text): This is an addendum to the GI progress note reported dictated by the resident. The patient was seen and evaluated here earlier along with the resident. Her p.o. intake remains good. Follow the calorie count. Pulmonary and a neurological follow-up. 09/30/18 20:23
--- NOTE | 2018-09-30 13:52 | CP.PCM.PCO ---
Physician Communication Note - Physician Communication Note Physician Communication Note: Cspine MRI ordered,refused by pt asked to be "released",currently refuse AR
--- NOTE | 2018-09-30 15:17 | CP.PCM.PCO ---
Physician Communication Note - Physician Communication Note Physician Communication Note: pt will mri c spine with contrast, PT assesement'
--- NOTE | 2018-09-30 16:44 | PN ---
DATE: 09/30/2018 SUBJECTIVE: The patient is 67 years old, seen and examined, was advised to be transferred to subacute rehab. The patient refuse she was adamant, she want to have muscle biopsy done. Dr. Gonzalez was consulted, who recommended that she should go to rehab and then he will scheduled for muscle biopsy later on after 2 to 3 weeks, but the patient was also recommended to have MRI of the C-spine done, but she refused and she wants to get second opinion. She want to go to [facility]. The patient is not advisable for her to go home and she should be going to subacute to acute rehab, but she states she lost her son to pick her up and she want to go to [facility] for second opinion. PHYSICAL EXAMINATION: GENERAL: Today, she is awake and alert, able to communicate by writing, had progressive dysphonia. VITAL SIGNS: The patient is afebrile. Pulse 60, respirations 18, blood pressure 114/61. LUNGS: Bilateral fair airflow. No rhonchi or crackle. HEART: S1 and S2 audible. ABDOMEN: Soft and nontender. No rebound. No guarding. NEUROLOGICAL: The patient has generalized weakness. She has tongue fasciculation and bilateral leg weakness and difficulty walking. LABORATORY DATA: CSF exam is unremarkable. ASSESSMENT: 1. Dysphonia, dysarthria, dysphagia consistent with generalized weakness. 2. Difficulty walking. 3. History of gastritis. PLAN: The patient should be going to subacute rehab. She should have MRI of the C-spine done, but she refused. She other want to go to [facility], so in my opinion she is not safe discharged to go home, she should be in rehab, so she might be able to signed against medical advised and go to [facility] on her own behalf. Todd Gates MD
--- NOTE | 2018-09-30 17:13 | PN ---
DATE: 09/30/2018 PULMONARY PROGRESS NOTE REFERRING PHYSICIAN: Todd Gates MD SUBJECTIVE: The patient is seen sitting up in bed. No acute distress. No overnight events reported. Son is at bedside. The patient reports feeling well today. No headache, rhinitis, cough, shortness of breath, chest pain, abdominal pain, nausea, vomiting, diarrhea, leg pain or leg swelling reported, wanting to be discharged. She wants to go to another hospital to get a second opinion on new diagnosis of ALS. OBJECTIVE: GENERAL: No acute distress. VITAL SIGNS: Blood pressure 114/51, pulse 60, temperature 97.9 and oxygen saturation 98% on room air. HEENT: Moist mucous membranes. Mallampati score of 4. Crowded airway. NECK: Supple. No JVD. LUNGS: Fair airflow bilaterally. CARDIOVASCULAR: S1, S2. ABDOMEN: Soft, nontender. No distention. No organomegaly. EXTREMITIES: No bilateral lower extremity edema. NEUROLOGIC: Awake, alert, verbal. Speaks in very low tone, has dystonia, communicates using white board. MEDICATIONS: Reviewed. Tylenol 650 every 6 hours p.r.n., DuoNeb 3 mL inhalation every 6 hours p.r.n., clotrimazole 10 mg 5 times a day, Diflucan 100 mg daily, MiraLax 17 g daily, and sodium chloride 0.9% 1000 mL at 50 mL per hour. LABORATORY DATA: Reviewed. Cerebrospinal fluid culture final no growth. IMPRESSION AND PLAN: Newly diagnosed amyotrophic lateral sclerosis. The patient has peptic ulcer disease, multiple falls, Jennifer-Hammond virus history. The patient with oral yg, treatment currently in place. Vital capacity today done by respiratory therapist 1.4L. Pulmonary function tests done and reviewed showing mild restrictive disease. Continue inhaled bronchodilators. We believe the patient would benefit from percutaneous endoscopic gastrostomy tube, but the patient has refused percutaneous endoscopic gastrostomy tube placement. The patient is at high risk for respiratory failure, high risk for aspiration. Head of bed elevated at 45 degrees. Sleep apnea precaution. We recommend avoiding sedation in this patient. Case discussed with the nursing staff. The patient seen and examined with Dr. Hubbard. Discussed assessment and plan as described above. The patient seen and examined with Ayala Lees, Nurse Practitioner. Discussed assessment and plan as described above. Thank you for this consult. We will follow with you. Ayala Lees APN Clary Hubbard MD [facility] # [id number] [facility] SYSTEM[facility]
--- NOTE | 2018-09-30 20:23 | PN ---
DATE: 09/30/2018 SUBJECTIVE: The patient was seen for followup today. The patient presented as relatively well. The patient has episodes of being tearful. The patient reported that she slept relatively well. The patient denied any thoughts of harming herself or others. The patient kept repeating "how would you feel if you got that diagnosis?" The patient also reported that she would like to have the medical record and she would like to go to [facility] for a second opinion. The patient does not present to be psychotic or disorganized. Based on reports from the nursing staff, the patient has a supportive son who seems to be involved into the patient's care. The patient does not exhibit any aggressive or agitated behavior. PHYSICAL EXAMINATION VITAL SIGNS: Reviewed. Temperature 98.8, pulse +85, blood pressure 108/64, respirations 26 and oxygen saturation is 93%. MEDICATIONS: Reviewed. The patient is on Tylenol, clotrimazole, Diflucan, MiraLax, and sodium chloride. LABORATORY DATA: Reviewed, most recent was from the . Microbiology reviewed. Blood and reviewed. REVIEW OF ORDERS: Notes reviewed. MENTAL STATUS EXAMINATION: The patient presented to be alert. The patient knows her medical diagnosis. The patient is aware of the circumstances of her admission to the medical side. Mood described as "how would you feel if you got that diagnosis?" Affect at times tearful, which is expected. Thought process seems to be coherent and goal-directed. Thought content, the patient denied any thoughts of harming herself or others, denied intent or plan, but the patient does not seem to be psychotic or disorganized. Insight and judgment seems to be fair. Impulses are well controlled. The patient has dysarthria, was able to communicate her needs by talking to this typewriter mechanic, but the patient has a low monotonic voice. At times, the patient would use a board in order to write down her needs. IMPRESSION: Rule out adjustment reaction with depressed and anxious mood, rule out mood disorder due to general medical condition. PLAN: Continue current management. Continue current medication. Neurologist is involved. Primary care physician involved. Social Service is involved. The patient's son seems to be supportive and involved. The one-to-one was discontinued. There is no other recommendations other than a complete health treatment and additional studies. From the Psychiatry service standpoint, the patient's emotions are expected. The patient denied any thoughts of harming herself or others. The patient was able to indicate her preferences. Should you have any questions, give me a call back. This typewriter mechanic will sign off. Should you have any questions give me a call back. Loni Ye MD
--- NOTE | 2018-09-30 23:22 | CP.PCM.PN ---
Subjective - Date & Time of Evaluation Date of Evaluation: 09/30/18 Time of Evaluation: 15:00 - Subjective Subjective: Sitting up, comfortable in bed. She communicated by writing on the board. Voice not clear. Alert, oriented. asking about work up for her diagnosis. She is refusing MRI spine. Objective - Vital Signs/Intake and Output Vital Signs (last 24 hours): Temp Pulse Resp BP Pulse Ox 98.7 F 98 H 20 108/64 96 09/30/18 16:16 09/30/18 18:00 09/30/18 16:16 09/30/18 16:16 09/30/18 16:16 Intake and Output: 09/30/18 10/01/18 18:59 06:59 Intake Total 840 Output Total 600 Balance 240 - Medications Medications: Current Medications Acetaminophen (Tylenol 325mg Tab) 650 mg PO Q6H PRN PRN Reason: Pain, moderate (4-7) Last Admin: 09/29/18 23:17 Dose: 650 mg Albuterol/Ipratropium (Duoneb 3 Mg/0.5 Mg (3 Ml) Ud) 3 ml IH [id number] PRN PRN Reason: Shortness of Breath Clotrimazole (Mycelex Elysia) 10 mg MT 5XD [facility] Last Admin: 09/30/18 22:36 Dose: Not Given Fluconazole (Diflucan) 100 mg PO DAILY [facility]; Protocol Last Admin: 09/30/18 11:11 Dose: 100 mg Sodium Chloride (Sodium Chloride 0.9%) 1,000 mls @ 50 mls/hr IV .Q20H [facility] Last Admin: 09/29/18 05:38 Dose: 50 mls/hr Polyethylene Glycol (Miralax) 17 gm PO DAILY [facility] Last Admin: 09/30/18 11:11 Dose: 17 gm - Labs Labs: 09/26/18 06:00 09/26/18 06:00 PT 11.8 SECONDS (9.4-12.5) 09/25/18 11:10 INR 1.04 09/25/18 11:10 APTT 31.6 Seconds (26.9-38.3) 09/25/18 11:10 - Constitutional Appears: Chronically Ill - Head Exam Head Exam: ATRAUMATIC, NORMAL INSPECTION, NORMOCEPHALIC - Eye Exam Eye Exam: Normal appearance - ENT Exam ENT Exam: Mucous Membranes Moist - Neck Exam Neck Exam: Normal Inspection - Respiratory Exam Respiratory Exam: Clear to Ausculation Bilateral, NORMAL BREATHING PATTERN - Cardiovascular Exam Cardiovascular Exam: REGULAR RHYTHM, +S1, +S2 - GI/Abdominal Exam GI & Abdominal Exam: Soft, Normal Bowel Sounds - Extremities Exam Extremities Exam: Normal Inspection - Neurological Exam Neurological Exam: Alert, Oriented x3 Additional comments: generalized muscle weakness. not able to phonate. - Skin Skin Exam: Normal Color, Warm Assessment and Plan - Assessment and Plan (Free Text) Assessment: 1. ALS : progressive generalized muscle weakness. work up in progress. Neurology note reviewed. 2. Mild leukopenia, mild anemia . will monitor blood counts. 3. She asked about work up that will establish diagnosis. I discussed with her that Neurology is recommending muscle biopsy and MRI. She also asked about the treatment options, I advised her that it will be as per neurology. Thank you Dr. Gates for allowing us to participate in her care.
[2018-10-01 07:43] VITALS: BP 114/68; RESP 18; TEMP 98.4; O2SAT 95
[2018-10-01] MEDS: POLYETHYLENE GLYCOL 3350 17 GM/Dose PACKET PO SCH (09:08)
--- NOTE | 2018-10-01 10:31 | PN ---
DATE: 10/01/2018 PULMONARY PROGRESS NOTE REFERRING PHYSICIAN: Todd Gates MD SUBJECTIVE: The patient is seen sitting up in bed. No acute distress. No overnight events reported. Reports feeling well today. No headache, rhinitis, cough, shortness of breath, chest pain, abdominal pain, nausea, vomiting, diarrhea, leg pain or leg swelling reported. The patient is scheduled for cervical spine MRI today. OBJECTIVE: GENERAL: No acute distress. VITAL SIGNS: Blood pressure 114/68, pulse 76, temperature 98.4 and oxygen saturation 95% on room air. HEENT: Moist mucous membranes. Mallampati score of 4. Crowded airway. NECK: Supple. No JVD. LUNGS: Fair airflow bilaterally. CARDIOVASCULAR: S1 and S2. ABDOMEN: Soft, nontender. No distention. No organomegaly. EXTREMITIES: No bilateral lower extremity edema. NEUROLOGIC: Awake, alert and verbal. Speaks in very low tone, dystonia, communicates using white board. MEDICATIONS: Reviewed. Tylenol 650 mg every 6 hours p.r.n., DuoNeb 3 mL inhalation every 6 hours p.r.n., clotrimazole 10 mg 5 times a day, Diflucan 100 mg daily, MiraLax 17 g daily, and sodium chloride 0.9% 1000 mL at 50 mL per hour. LABORATORY DATA: Reviewed. No new labs. IMPRESSION AND PLAN: Newly diagnosed amyotrophic lateral sclerosis, history of peptic ulcer disease, multiple falls, Jennifer-Hammond virus, oral yg. The patient is on antifungal. Pulmonary point of view, continue vital capacity daily, continue p.r.n. inhaled bronchodilators. The patient is at high risk for respiratory failure. The patient is at high risk for aspiration. Aspiration precautions, head of bed elevated at 45 degrees, sleep apnea precautions. We recommend avoiding sedation in this patient. Pressure ulcer precaution. Fall precaution. The patient seen and examined with Dr. Hubbard. Discussed assessment and plan as described above. The patient seen and examined with Ayala Lees, Nurse Practitioner. Discussed assessment and plan as described above. Thank you for this consult. We will follow with you. Ayala Lees APN Clary Hubbard MD [facility] # [id number]
[2018-10-01] MEDS ORDERED: Gadodiamide 287 MG/ML VIAL (20ML) IV ONE (11:11)
--- NOTE | 2018-10-01 12:41 | MRI ---
Date of service: 10/01/2018 PROCEDURE: MR CERVICAL SPINE WITH AND WITHOUT CONTRAST HISTORY: Assess dx ALS COMPARISON: None available. TECHNIQUE: Multiecho multiplanar sequences were performed through the cervical spine with and without the use of intravenous contrast. 15 cc of Omniscan FINDINGS: Normal lordotic curvature. Craniocervical junction unremarkable. Vertebral body heights preserved. No marrow signal abnormality. Normal cervical cord. No paraspinal abnormality. No abnormal enhancement C2-3: No disc herniation, spinal canal stenosis or neural foraminal narrowing. C3-4: Disc degeneration with bilateral foraminal stenosis and mild central stenosis at C3-4. C4-5: Disc degeneration with moderate central stenosis and bilateral foraminal stenosis at C4-5 C5-C6: No disc herniation, spinal canal stenosis or neural foraminal narrowing. C6-C7: No disc herniation, spinal canal stenosis or neuroforaminal narrowing. C7-T1: No disc herniation, spinal canal stenosis or neural foraminal narrowing. OTHER FINDINGS: None. IMPRESSION: Disc degeneration with bilateral foraminal stenosis and mild central stenosis at C3-4. Disc degeneration with moderate central stenosis and bilateral foraminal stenosis at C4-5
--- NOTE | 2018-10-01 13:04 | CP.PCM.PCO ---
Physician Communication Note - Physician Communication Note Physician Communication Note: mri c spine reviewed. clear for rehab. riluzole 50mg po bid.
--- NOTE | 2018-10-01 13:17 | CP.PCM.PN ---
<Cirilo Shpepard - Last Filed: 10/01/18 13:14> Subjective - Date & Time of Evaluation Date of Evaluation: 10/01/18 Time of Evaluation: 13:14 - Subjective Subjective: Cirilo Sheppard- Internal Medicine Resident-Progress Note on Behalf on Dr. Ruts Subjective: Patient seen and examined at bedside. No acute events overnight. Admits to baseline generalized weakness and difficulty speaking. Patient continues to be able to tolerate dysphagia diet without pain, coughing, drooling, choking, and difficulty. Noted to eat dinner and breakfast without issue. Denies abdominal pain, nausea, vomiting, diarrhea, constipation, bright red blood per rectum, black stools, and changes in stool caliber. 12 point ROS negative except as indicated in the HPI Physical Examination: - Constitutional Appears: Non-toxic, No Acute Distress - Eye Exam Eye Exam: EOMI - ENT Exam ENT Exam: Mucous Membranes Moist, white lesions on lingula - Respiratory Exam Respiratory Exam: Clear to Auscultation Bilateral, NORMAL BREATHING PATTERN - Cardiovascular Exam Cardiovascular Exam: +S1, +S2 - GI/Abdominal Exam GI & Abdominal Exam: Soft, Normal Bowel Sounds. absent: Distended, Firm, Guarding, Rigid, Tenderness, Organomegaly - Extremities Exam Extremities exam: Negative for: pedal edema, tenderness - Neurological Exam Neurological exam: Alert, Oriented x3, tongue fasciculations - Psychiatric Exam Psychiatric exam: Normal Affect, Normal Mood - Skin Skin Exam: Dry, Intact, Normal Color, Warm Assessment and Plan: Patient is a 67 year old female with a PMHx of PUD ulcer, hiatal hernia, gastritis, EBV (positive IgG antibody in past labwork), dysarthria, and chronic inflammatory demyelinating polyneuropathy who was admitted for evaluation and treatment for increased progressive generalized weakness. Oropharyngeal dysphagia Dysarthria/ Generalized weakness- concern for ALS Oropharyngeal candidiasis Chronic inflammatory demyelinating polyneuropathy Hx of PUD ulcer Hx of Hiatal hernia Hx of Gastritis Imaging Reviewed 09/28/2018 CT Chest, Abdomen and Pelvis with intravenous-There is mural thickening in the sigmoid colon which may be due to diverticular disease or localized colitis. There is mild constipation with fecal impaction. - continue dysphagia/modified consistency diet- must assist with feedings - patient does not require PEG tube at this time as she is tolerating PO intake - recommend pulm work up for clearance if/when PEG tube is required - continue to monitor calorie count - continue clotrimazole - aspiration precautions Patient case discussed with and plan approved by attending physician, Dr. Rust. Objective - Vital Signs/Intake and Output Vital Signs (last 24 hours): Temp Pulse Resp BP Pulse Ox 98.4 F 91 H 18 114/68 95 10/01/18 07:43 10/01/18 10:00 10/01/18 07:43 10/01/18 07:43 10/01/18 07:43 Intake and Output: 10/01/18 10/01/18 06:59 18:59 Intake Total 840 Output Total 700 Balance 140 - Medications Medications: Current Medications Acetaminophen (Tylenol 325mg Tab) 650 mg PO Q6H PRN PRN Reason: Pain, moderate (4-7) Last Admin: 10/01/18 05:45 Dose: 650 mg Albuterol/Ipratropium (Duoneb 3 Mg/0.5 Mg (3 Ml) Ud) 3 ml IH [id number] PRN PRN Reason: Shortness of Breath Clotrimazole (Mycelex Elysia) 10 mg MT 5XD [facility] Last Admin: 10/01/18 09:08 Dose: 10 mg Sodium Chloride (Sodium Chloride 0.9%) 1,000 mls @ 50 mls/hr IV .Q20H [facility] Last Admin: 09/29/18 05:38 Dose: 50 mls/hr Polyethylene Glycol (Miralax) 17 gm PO DAILY [facility] Last Admin: 10/01/18 09:08 Dose: 17 gm - Labs Labs: 09/26/18 06:00 09/26/18 06:00 PT 11.8 SECONDS (9.4-12.5) 09/25/18 11:10 INR 1.04 09/25/18 11:10 APTT 31.6 Seconds (26.9-38.3) 09/25/18 11:10 <Joanne Rust V - Last Filed: 10/01/18 23:27> Objective - Vital Signs/Intake and Output Vital Signs (last 24 hours): Temp Pulse Resp BP Pulse Ox 98.4 F 98 H 18 114/68 95 10/01/18 07:43 10/01/18 14:00 10/01/18 07:43 10/01/18 07:43 10/01/18 07:43 - Labs Labs: 09/26/18 06:00 09/26/18 06:00 PT 11.8 SECONDS (9.4-12.5) 09/25/18 11:10 INR 1.04 09/25/18 11:10 APTT 31.6 Seconds (26.9-38.3) 09/25/18 11:10 Attending/Attestation - Attestation I have personally seen and examined this patient.: Yes I have fully participated in the care of the patient.: Yes I have reviewed all pertinent clinical information, including history, physical exam and plan: Yes Notes (Text): This patient was seen and evaluated with the family practice medical doctor team earlier today. This is an addendum to the GI progress report dictated by the resident. Patient is tolerating diet. Continue aspiration precautions. Pulmonary evaluation noted. Patient is reluctant for feeding tube. We will hold off feed ing tube placement as the patient p.o. intake is improving and able to tolerate it 10/01/18 23:26
--- NOTE | 2018-10-01 14:15 | DS ---
HISTORY OF PRESENT ILLNESS: The patient is 67 years old, seen and examined. The patient came in because of increasing weakness, difficulty walking, difficulty communicating and talking. She states her voice is getting weaker and weaker, so she was admitted. The patient had extensive workup done including MRI of cervical spine, MRI of the brain, modified barium swallow. She has lumbar puncture done and so far all test are negative. She also underwent CT of the chest, abdomen and pelvis to rule out Eaton-Lambert syndrome there was no evidence of malignancy. The patient was diagnosed by exclusion that she has ALS. The patient wanted second opinion, biopsy, but that will be postponed. For now, I gave the patient DrBhavik number who she wanted to get second opinion. She agreed to go for acute rehab and she will get second opinion from other neurologist. PHYSICAL EXAMINATION: GENERAL: She is sitting awake and alert, very anxious. VITAL SIGNS: She is afebrile. Pulse 76, respiration 18 and blood pressure 140/68. LUNGS: Bilateral fair airflow. No rhonchi or crackle. HEART: S1 and S2, audible. ABDOMEN: Soft and nontender. No rebound. No guarding. NEUROLOGIC: She is awake, alert and communicate by writing. She had dysphonia and dysarthria. ASSESSMENT: 1. Progressive dysphonia, dysarthria, dysphagia consistent with ALS, all other workup is negative. There is no evidence of multiple sclerosis or any underlying malignancy, nor any other body parts. 2. Anxiety. 3. History of gastritis. 4. Oral thrush. PLAN: The patient is being discharged to acute rehab. She will get second opinion from other neurologist and in the meantime, we are trying to get her medication. The patient will be transferred today. Discussed with the patient's son and the patient. Todd Gates MD
--- NOTE | 2018-10-01 14:59 | PN ---
DATE: 10/01/2018 SUBJECTIVE: The patient was seen and examined today. The patient presented to be alert. The patient reported that she had a good night's sleep. The patient reported her mood "as good as it could be." The patient wrote that sentence on the board with help of which the patient communicates. The patient has dysarthria and that is why sometimes the patient has difficulties to express herself and write her statements on the board, which is provided by Hospital. The patient reported that she is willing to go to acute rehab and right now the patient is aware that she is waiting for MRI, which was scheduled for today. Collaterals from the nursing staff; the patient does not exhibit any aggressive or agitated behavior. The patient is compliant with the treatment. PHYSICAL EXAMINATION: VITAL SIGNS: Reviewed. Temperature 98.4, pulse 76, blood pressure 114/68, respirations 18, and oxygen saturation is 95%. MEDICATIONS: Reviewed. The patient is on Tylenol, DuoNeb, clotrimazole, Diflucan, MiraLax, and sodium chloride. LABORATORY DATA: Labs reviewed. Most recent was from 09/26/2018. MENTAL STATUS EXAMINATION: The patient presented to be alert. The patient's affect was bright. The patient was smiling back to this fha underwriter. The patient was sitting comfortably and presented with no agitation or aggression. Mood described "good as it could be." Thought process concrete. Thought content, the patient denied visual, auditory or tactile hallucinations. Denied paranoid ideation. The patient denied thoughts of harming herself or others, denied intent or plan. Insight and judgment seems to be improving. Impulses are well controlled. In regards of the statement that she wants to kill herself, it could be related to acute stress reaction because the patient got bad news about her new diagnosis . PLAN: Continue current management. Continue current medications. The patient is waiting for MRI. After that, the patient is willing to go to acute rehab. No agitation or aggression. The patient posed no imminent danger to self or others. This fha underwriter will sign off. Should you have any questions, give me a call back. Loni Ye MD
[2018-10-01 15:19] VITALS: PULSE 98
== END 2018-10-01 15:20 | DRG 57 ==
LOC: ED 13:23 → ERH 16:46 → 3RNO 22:34
PROVIDERS: ADMIT Internal Medicine; ATTEND Internal Medicine
PROC: 009U3ZX Drainage of Spinal Canal, Percutaneous Approach, Diagnostic (ICD-10-PCS; principal; 2018-09-25)
PROC: B01BZZZ Fluoroscopy of Spinal Cord (ICD-10-PCS; 2018-09-25)
DX: G12.21 Amyotrophic lateral sclerosis (principal); G61.81 Chronic inflammatory demyelinating polyneuritis; B37.0 Candidal stomatitis; K44.9 Diaphragmatic hernia without obstruction or gangrene; D18.02 Hemangioma of intracranial structures; R13.12 Dysphagia, oropharyngeal phase; R49.0 Dysphonia; K29.70 Gastritis, unspecified, without bleeding; F32.9 Major depressive disorder, single episode, unspecified; F41.9 Anxiety disorder, unspecified; K21.9 Gastro-esophageal reflux disease without esophagitis; K56.41 Fecal impaction; R26.2 Difficulty in walking, not elsewhere classified; R29.6 Repeated falls; R47.1 Dysarthria and anarthria; R53.1 Weakness; R63.4 Abnormal weight loss; R63.0 Anorexia; Z87.11 Personal history of peptic ulcer disease